=== PATIENT | female | born 1935 | race Caucasian/White ===

== ENCOUNTER 2020-06-26 20:56 | Observation (INO) | payer MEDICARE ==
[2020-06-26 22:34] LABS: Urine Blood 2+ (NEG); Urine Glucose NEGATIVE (NEG); Urine Protein 2+ (NEG)
[2020-06-26 22:53] LABS: Absolute Lymphocytes (CBC) 1.2 K/uL (0.7-4.9); Basophils % 0.5 % (0-1.3); Hematocrit 43.2 % (36.0-45.0); Lymphocytes % 21.4 % (15.3-44.8); MPV 8.8 fL (7.6-11.3); RBC Red Blood Cell Count 4.49 M/uL (3.86-4.86)
[2020-06-26 23:05] LABS: Protime INR 1.07
[2020-06-26 23:20] LABS: ALT/SGPT 11 U/L (12-78); AST/SGOT 18 U/L (15-37); Albumin 3.5 g/dL (3.4-5.0); Alkaline Phosphatase 74 U/L (45-117); BUN Blood Urea Nitrogen 13 mg/dL (7-18); Bicarbonate 29 mmol/L (21-32); Bilirubin Direct 0.3 mg/dL (0-0.2); Bilirubin Total 0.7 mg/dL (0.2-1.0); Glucose Level 96 mg/dL (74-106); Magnesium 1.9 mg/dL (1.8-2.4); NT PRO-BNP 1522 pg/mL (<450); Potassium 3.5 mmol/L (3.5-5.1); Protein, Total 9.1 g/dL (6.4-8.2); Sodium Level 136 mmol/L (136-145); Troponin (Emerg Dept Use Only) < 0.02 ng/mL (0.0-0.045)
--- NOTE | 2020-06-27 00:50 | ER ---
Nurse's Notes [facility] Name: Lauren Butterfield Age: 84 yrs Sex: Female : 1935 Arrival Date: 06/26/2020 Time: 21:01 Bed 24 Private MD: Diagnosis: Dizziness. General weakness. Unsteady dait Presentation: 06/26 21:01 Ebola Screen: No symptoms or risks identified at this time. ea 21:02 Chief complaint: EMS states: was tested positive for COVID last Jun 2. both of mg2 them had shingles shot last Friday and since then she has been feeling weak. she has mild dementia but not diagnosed. BGL-87 mg/dl. Coronavirus screen: Client denies travel out of the [place] in the last 14 days. Client presents with at least one sign or symptom that may indicate coronavirus-19. Standard/surgical mask placed on the client. Provider contacted for isolation considerations. Ebola Screen: No symptoms or risks identified at this time. No acute neurological deficit is noted. Initial Sepsis Screen: Does the patient meet any 2 criteria? No. Patient's initial sepsis screen is negative. Does the patient have a suspected source of infection? No. Patient's initial sepsis screen is negative. Risk Assessment: Do you want to hurt yourself or someone else? Patient reports no desire to harm self or others. Onset of symptoms was June 24, 2020. 21:02 Method Of Arrival: EMS: [facility] mg2 21:02 Acuity: JOHNSON 3 mg2 Historical: - Allergies: 21:03 No Known Allergies; ea - Immunization history:: Flu vaccine is not up to date. - Social history:: Smoking status: unknown. Screenin:02 Abuse screen: Denies threats or abuse. Nutritional screening: No deficits noted. ea Tuberculosis screening: No symptoms or risk factors identified. Fall Risk None identified. Assessment: 21:05 General: Appears in no apparent distress. comfortable, Behavior is calm, cooperative. mg2 Pain: Denies pain. Neuro: Level of Consciousness is awake, obeys commands, confused, Oriented to person, place. Cardiovascular: Capillary refill < 3 seconds Patient's skin is warm and dry. Respiratory: Airway is patent Respiratory effort is even, unlabored, Respiratory pattern is regular, symmetrical. GI: No signs and/or symptoms were reported involving the gastrointestinal system. : No signs and/or symptoms were reported regarding the genitourinary system. EENT: No signs and/or symptoms were reported regarding the EENT system. Derm: Skin is intact, is healthy with good turgor, Skin is pink, warm \T\ dry. normal. Musculoskeletal: Circulation, motion, and sensation intact. Capillary refill < 3 seconds. 22:21 Reassessment: road test was done by the patient. she said she is a bit dizzy while mg2 walking. 22:43 Reassessment: patient sent to CT scan via stretcher. son called- [phone] ( Gold Noyola). 23:00 Reassessment: Patient and/or family updated on plan of care and expected duration. Pain ea level reassessed. Patient is alert, oriented x 3, equal unlabored respirations, skin warm/dry/pink. Returned from CT. 06/27 00:05 Reassessment: called the lab to the in house covid test in the morning. mg2 00:18 Reassessment: Patient and/or family updated on plan of care and expected duration. Pain ea level reassessed. Pt resting with eyes closed. Respirations even and unlabored. Chest expansions even and symmetrical. No s/s of pain or discomfort noted at this time. 02:02 Reassessment: report given to ROXANNA [place]. [facility] [place]ital Signs: 06/26 21:01 BP 154 / 69; Pulse 89; Resp 18; Temp 98.5; Pulse Ox 97% on R/A; Weight 62.14 kg; Height ea 5 ft. 3 in. (160.02 cm); 23:15 BP 141 / 76; Pulse 83; Resp 16; Pulse Ox 95% on R/A; ea 23:44 BP 141 / 67; Pulse 80; Resp 18; mg2 06/27 00:38 BP 131 / 61; Pulse 74; Resp 18; Pulse Ox 93% on R/A; mg2 06/26 21:01 Body Mass Index 24.27 (62.14 kg, 160.02 cm) ea 00:38 patient sleeping now mg2 ED Course: 06/26 21:01 Patient arrived in ED. ea 21:02 Maverick Brown, RN is Primary Nurse. mg2 21:03 Patient has correct armband on for positive identification. Placed in gown. Bed in low ea position. Call light in reach. Side rails up X2. nuclear monitoring technician on. Pulse ox on. NIBP on. 21:03 Arm band placed on right wrist. Patient placed in an exam room, on a stretcher, on ea nuclear monitoring technician, on pulse oximetry. 21:05 Triage completed. mg2 21:05 No provider procedures requiring assistance completed. mg2 21:15 Woody Pompa MD is Attending Physician. pkl 22:39 XRAY Chest (1 view) In Process Unspecified. EDMS 22:40 Inserted saline lock: 20 gauge in right antecubital area, using aseptic technique. ds4 Blood collected. 22:57 CT Head Brain wo Cont In Process Unspecified. EDMS 23:10 COVID SWAB SENT TO LAB. mg2 11 00:49 Prince Galvin MD is Hospitalizing Provider. pkl 01:53 Patient admitted, IV remains in place. mg2 Administered Medications: No medications were administered Outcome: 00:50 Decision to Hospitalize by Provider. pkl 01:51 Admitted to ER Hold. Please see [facility] for further documentation. mg2 01:51 Condition: stable 01:51 Instructed on the need for admit, Demonstrated understanding of instructions. 19:05 Patient left the ED. aa5 Signatures: Dispatcher [employer] EDMS Woody Pompa MD MD pkMarjan Jimenez, RN RN aa5 Elia Pierre ds4 Heidi Espinal, RN Maverick Kevin ea, RN RN mg2 Corrections: (The following items were deleted from the chart) 06/26 21:07 21:02 Chief complaint: EMS states: was tested positive for COVID last Jun 2. mg2 both of them had shingles shot last Friday and since then she has been feeling weak. she has mild dementia but not diagnosed. mg2
--- NOTE | 2020-06-27 00:50 | EDPHYS ---
Physician Documentation [facility] Name: Lauren Butterfield Age: 84 yrs Sex: Female : 1935 Arrival Date: 06/26/2020 Time: 21:01 Bed 24 Private MD: ED Physician Woody Pompa HPI: 06/26 22:15 This 84 yrs old Female presents to ER via EMS with complaints of Weakness. pkl 22:13 . pkl 22:15 The patient presents with lightheadedness, feeling off balance. Onset: The pkl symptoms/episode began/occurred 3 day(s) ago. Patient 's was tested positive for Covid 19 on 06/19/20. 3 days ago, both she and her had shingles vaccinations. Since then she has been complaining of dizziness and feeling weak. Historical: - Allergies: 21:03 No Known Allergies; ea - Immunization history:: Flu vaccine is not up to date. - Social history:: Smoking status: unknown. ROS: 22:15 Eyes: Negative for injury, pain, redness, and discharge, ENT: Negative for injury, pkl pain, and discharge, Neck: Negative for injury, pain, and swelling, Cardiovascular: Negative for chest pain, palpitations, and edema, Respiratory: Negative for shortness of breath, cough, wheezing, and pleuritic chest pain, Abdomen/GI: Negative for abdominal pain, nausea, vomiting, diarrhea, and constipation, Back: Negative for injury and pain, : Negative for injury, bleeding, discharge, and swelling, MS/Extremity: Negative for injury and deformity, Skin: Negative for injury, rash, and discoloration. 22:15 Neuro: Positive for dizziness, gait disturbance, weakness. Exam: 22:15 Head/Face: Normocephalic, atraumatic. Eyes: Pupils equal round and reactive to light, pkl extra-ocular motions intact. Lids and lashes normal. Conjunctiva and sclera are non-icteric and not injected. Cornea within normal limits. Periorbital areas with no swelling, redness, or edema. ENT: Nares patent. No nasal discharge, no septal abnormalities noted. Tympanic membranes are normal and external auditory canals are clear. Oropharynx with no redness, swelling, or masses, exudates, or evidence of obstruction, uvula midline. Mucous membranes moist. Neck: Trachea midline, no thyromegaly or masses palpated, and no cervical lymphadenopathy. Supple, full range of motion without nuchal rigidity, or vertebral point tenderness. No Meningismus. Chest/axilla: Normal chest wall appearance and motion. Nontender with no deformity. No lesions are appreciated. Cardiovascular: Regular rate and rhythm with a normal S1 and S2. No gallops, murmurs, or rubs. Normal PMI, no JVD. No pulse deficits. Respiratory: Lungs have equal breath sounds bilaterally, clear to auscultation and percussion. No rales, rhonchi or wheezes noted. No increased work of breathing, no retractions or nasal flaring. Abdomen/GI: Soft, non-tender, with normal bowel sounds. No distension or tympany. No guarding or rebound. No evidence of tenderness throughout. Back: No spinal tenderness. No costovertebral tenderness. Full range of motion. Skin: Warm, dry with normal turgor. Normal color with no rashes, no lesions, and no evidence of cellulitis. MS/ Extremity: Pulses equal, no cyanosis. Neurovascular intact. Full, normal range of motion. 22:15 Neuro: Orientation: appropriate for stated age, Mentation: is normal, Cranial nerves: grossly normal, Cerebellar function: is grossly normal, Motor: is normal, Sensation: is normal, Gait: mild unsteady gait. Vital Signs: 21:01 BP 154 / 69; Pulse 89; Resp 18; Temp 98.5; Pulse Ox 97% on R/A; Weight 62.14 kg; Height ea 5 ft. 3 in. (160.02 cm); 23:15 BP 141 / 76; Pulse 83; Resp 16; Pulse Ox 95% on R/A; ea 23:44 BP 141 / 67; Pulse 80; Resp 18; mg2 06/27 00:38 BP 131 / 61; Pulse 74; Resp 18; Pulse Ox 93% on R/A; mg2 06/26 21:01 Body Mass Index 24.27 (62.14 kg, 160.02 cm) ea 00:38 patient sleeping now mg2 MDM: 06/26 21:15 Patient medically screened. pkl 06/27 00:47 Data reviewed: vital signs, nurses notes, lab test result(s), EKG, radiologic studies, pkl CT scan, plain films. ED course: Talked to Dr. Galvin for observation. 06/26 22:05 Order name: Basic Metabolic Panel; Complete Time: 23:35 pkl 06/26 22:05 Order name: CBC with Diff; Complete Time: 23:35 pkl 06/26 22:05 Order name: LFT's; Complete Time: 23:35 pkl 06/26 22:05 Order name: Magnesium; Complete Time: 23:35 pkl 06/26 22:05 Order name: NT PRO-BNP; Complete Time: 23:35 pkl 06/26 22:05 Order name: PT-INR; Complete Time: 23:35 pkl 06/26 22:05 Order name: Troponin (emerg Dept Use Only); Complete Time: 23:35 pkl 06/26 22:05 Order name: COVID-19 pk 06/26 22:27 Order name: Urine Dipstick--Ancillary (enter results); Complete Time: 23:35 ds4 06/27 07:10 Order name: SARS-COV-2 RT PCR EDMO 06/27 08:02 Order name: Lipid Profile EDMO 06/27 08:02 Order name: C-Reactive Protein EDMO 06/27 08:02 Order name: T4 Free EDMO 06/27 08:02 Order name: Thyroid Stimulating Hormone EDMO 06/26 22:05 Order name: XRAY Chest (1 view) pk 06/26 22:05 Order name: EKG; Complete Time: 22:07 pkl 06/26 22:05 Order name: Cardiac monitoring; Complete Time: 22:20 pk 06/26 22:05 Order name: EKG - Nurse/Tech; Complete Time: 22:43 pkl 06/26 22:05 Order name: IV Saline Lock; Complete Time: 22:43 pkl 06/26 22:05 Order name: Labs collected and sent; Complete Time: 22:43 pkl 06/26 22:05 Order name: O2 Per Protocol; Complete Time: 22:20 pkl 06/26 22:05 Order name: O2 Sat Monitoring; Complete Time: 22:20 pkl 06/26 22:05 Order name: CT Head Brain wo Cont pkl 06/26 22:20 Order name: Urine Dipstick-Ancillary (obtain specimen); Complete Time: 22:26 mg2 06/27 08:02 Order name: Ferritin EDMS 06/27 09:24 Order name: US EDMS 06/27 13:09 Order name: Vitamin B12 Level EDMS 06/27 13:28 Order name: MRI EDMS Administered Medications: No medications were administered Disposition: 06/27/20 00:50 Hospitalization ordered by Prince Kamar for Observation. Preliminary diagnosis is Dizziness. General weakness. Unsteady dait. - Bed requested for [facility] ER HOLD. - Status is Observation. aa5 - Condition is Stable. - Problem is new. - Symptoms are unchanged. Signatures: Dispatcher [employer] EDMS Woody Pompa MD MD pkl Marjan Carrera, RN RN aa5 Kristal Lerma RN RN tl1 Heidi Espinal RN RN ea Maverick Brown RN RN mg2 Corrections: (The following items were deleted from the chart) 01:32 00:50 Hospitalization Ordered by Prince Kamar WILDER for Observation. Preliminary tl1 diagnosis is Dizziness. General weakness. Unsteady dait. Bed requested for Telemetry/MedSurg (observation). Status is Observation. Condition is Stable. Problem is new. Symptoms are unchanged. pkl 19:05 01:32 06/27/2020 00:50 Hospitalization Ordered by Prince Kamar WILDER for Observation. aa5 Preliminary diagnosis is Dizziness. General weakness. Unsteady dait. Bed requested for [facility] ER HOLD. Status is Observation. Condition is Stable. Problem is new. Symptoms are unchanged. tl1
[2020-06-27 01:49] VITALS: BMI 24.3
--- NOTE | 2020-06-27 01:58 | P.HP ---
Certification for Inpatient Patient admitted to: Observation With expected LOS: <2 Midnights Practitioner: I am a practitioner with admitting privileges, knowledge of patient current condition, hospital course, and medical plan of care. Services: Services provided to patient in accordance with Admission requirements found in Title 42 Section 412.3 of the Code of Federal Regulations Patient History Date of Service: 06/27/20 Reason for admission: unsteady gait and altered mental status History of Present Illness: Patient is a 84-year-old female who presented the ER accompanied by . She has been having some unsteady gait and reduced mobility status. Although not formally diagnosed, suspects some cognitive impairment which has been ongoing for the past few years after a fall incident with possible head injury. Recently, patient has been confused and having difficulty moving around. She endorses lack of appetite, denies any diarrhea or vomiting. Denies any fever or chills. She also denies any dysuria. As her , who is her primary day care home mother, is being admitted for COVID 19 PNA, patient will not be safe to return home by herself. Allergies No Known Allergies Allergy (Verified 07/05/13 22:55) Home Medications: ALPRAZolam [Xanax*] 0.5 mg PO DAILY 07/05/13 Atenolol 100 mg PO DAILY 07/05/13 Zolpidem Tartrate [Ambien*] 10 mg PO BEDTIME PRN PRN 07/05/13 Amlodipine [Norvasc*] 10 mg PO DAILY #30 tab 07/16/13 Hydralazine [Apresoline*] 25 mg PO Q8HR #90 tab 07/16/13 Magnesium Oxide [Mag 0X*] 400 mg PO BID #60 tab 07/16/13 Pantoprazole [Protonix Tab*] 40 mg PO DAILYAC #30 tab 07/16/13 Sodium Chloride Tab [Sodium Chloride*] 1 gm PO Q8HR #90 tab 07/16/13 Valsartan [Diovan*] 160 mg PO BID #60 tab 07/16/13 atenoloL [Tenormin*] 100 mg PO DAILY #30 tab 07/16/13 - Past Medical/Surgical History Diabetic: No -: HTN -: Anxiety -: Insomnia - Social History Smoking Status: Unknown if ever smoked Alcohol use: No CD- Drugs: No Caffeine use: No Physical Examination - Physical Exam General: Cooperative, Cachectic, Demented, Mild distress, Other (very frail) HEENT: Atraumatic, Normocephalic, PERRLA, EOMI Neck: Supple Respiratory: Clear to auscultation bilaterally, Normal air movement Cardiovascular: No edema, Normal pulses, Regular rate/rhythm, Normal S1 S2 Gastrointestinal: Normal bowel sounds, Soft and benign, Non-distended, No tenderness Musculoskeletal: Other (3/5 strenght in all extremities) Neurological: Sensation intact, Normal affect, Dementia - Studies Laboratory Data (last 24 hrs) 06/26/20 22:40: PT 12.6 H, INR 1.07 06/26/20 22:40: WBC 5.8, Hgb 14.4, Hct 43.2, Plt Count 232 06/26/20 22:40: Sodium 136, Potassium 3.5, BUN 13, Creatinine 0.92, Glucose 96, Magnesium 1.9, Total Bilirubin 0.7, AST 18, ALT 11 L, Alkaline Phosphatase 74 Assessment and Plan - Problems (Diagnosis) (1) Generalized weakness Current Visit: Yes Status: Acute (2) Cognitive impairment Current Visit: Yes Status: Acute - Advance Directives Does patient have a Living Will: No Does patient have a Durable POA for Healthcare: No Physician Review Additional Text: Assessment Patient is a 84 year old female with possible dementia admitted with generalized weakness and gait instability. She has been wobbly at home and requires 's assistance for ADLs. CT Head w/o acute intracranial abnormalities Generalized weakness High risk for fall Frailty Cognitive impairement PLAN: Admit under telemetry MRI Brain pending PT/OT in the morning There is a COVID 19 test pending as patient's just recently tested positive
[2020-06-27] MEDS ORDERED: NA CHLORIDE 0.9% 250 ML IV ONE (06:40)
[2020-06-27 08:02] LABS: C-Reactive Protein 28.6 mg/L (<3.00); Ferritin 187.9 ng/mL (8-388); Thyroid Stimulating Hormone 1.08 uIU/mL (0.360-3.740)
[2020-06-27] MEDS ORDERED: ASPIRIN EC 81 MG TAB PO ONE (08:18)
[2020-06-27] MEDS ORDERED: FOLIC ACID 1 MG TABLET ONE ×2 (08:18→10:18)
[2020-06-27] MEDS ORDERED: NA CHLORIDE 0.9% 250 ML ONE (08:18)
--- NOTE | 2020-06-27 08:27 | RAD REPORT ---
EXAM DESCRIPTION: RAD - Chest Single View - 06/26/2020 10:39 pm CLINICAL HISTORY: feeling weak Chest pain. COMPARISON: Chest Pa And Lat (2 Views) dated 06/08/2020; Chest Pa And Lat (2 Views) dated 10/05/2018; Chest Pa And Lat (2 Views) dated 07/20/2018; CHEST SINGLE VIEW dated 07/06/2013 FINDINGS: Portable technique limits examination quality. Emphysematous changes are present throughout the lungs. The heart is moderately enlarged in size. No displaced fractures.Aortic atherosclerosis IMPRESSION: Prominent COPD.
--- NOTE | 2020-06-27 08:59 | P.DS ---
Admission Date: 06/27/20 Discharge Date: 06/27/20 Primary Care Provider: Dr. Sadler Disposition: DC HOME/HOME HEALTH CARE Discharge Condition: GOOD Reason for Admission: unsteady gait and altered mental status Consultations: Neurology-Dr. Pineda Procedures: CT Head: No acute intracranial abnormality. ECHO: EF 60% LEFT VENTRICULAR WALL MOTION: NORMAL DOPPLER/COLOR FLOW: MILD TO MODERATE AORTIC REGURGITATION. COMMENTS: NORMAL LEFT VENTRICULAR SIZE AND FUNCTION. MITRAL ANNULAR CALCIFICATION. MILD TO MODERATE AORTIC REGURGITATION. NO EFFUSION. Carotid Doppler: FINDINGS: Normal high resistance waveforms are noted in both external carotid arteries. The common carotid arteries and internal carotid arteries show normal low resistance waveforms. Moderate hard plaquing is present in both internal carotid arteries. Peak systolic and end diastolic velocity values and the ICA/CCA ratios are in the non-hemodynamically significant range. Antegrade flow seen in both vertebral arteries. IMPRESSION: Moderate hard plaquing in both internal carotid arteries. No evidence of a hemodynamically significant stenosis. 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 Mild to moderate signal within periventricular, deep and subcortical white matter likely ischemic changes secondary to small vessel disease. Diffusion-weighted/ADC mapping does not reveal evidence of acute infarction. The ventricles are normal caliber. An extra-axial fluid collection is not present Signal within the sphenoids probably chronic Fluid right mastoids IMPRESSION: No acute abnormality is displayed Fluid right mastoids may indicate acute mastoiditis and should be correlated clinically CXR: FINDINGS: Portable technique limits examination quality. Emphysematous changes are present throughout the lungs. The heart is moderately enlarged in size. No displaced fractures.Aortic atherosclerosis IMPRESSION: Prominent COPD. Medical Problem List: Fatigue, unsteadiness likely related to COVID 19 infection without hypoxia HTN Dementia likely vascular History CVA Brief History of Present Illness: 84-year-old female with history of dementia, hypertension. Patient presented to the ER due to increased fatigue. Some unsteadiness of her gait was noted. Patient reports lack of appetite. was present with her. was positive for COVID 19. Initial CT head unremarkable. Patient admitted for further evaluation. Hospital Course: Patient presented with increased fatigue, unsteadiness. Patient found to be positive for COVID 19. also tested positive recently. Chest x-ray shows no significant pneumonia. Patient did not have any hypoxia. CRP slightly elevated. CT head unremarkable. MRI brain unremarkable. Patient will be discharged home. Patient may continue with vitamin D 500 units daily, vitamin-C 500 mg daily, zinc 220 mg daily, thiamine 100 mg daily. The patient will also continue with prednisone 10 mg daily for 7 days. Patient will continue with social distancing, fase mask use and hand washing. Fall precautions to be continued. Will recommend home health and physical therapy at discharge. Recommend follow up with pulmonology within 1 week to follow up her care. Recommend follow up with her PCP in 1 week to further address. Patient with hypertension. This has remained stable. Patient will continue with her current medication. Patient with underlying dementia. Recommend follow up with neurology as an outpatient to further evaluate. Will recommend to continue multi vitamins as stated above including folic acid daily. Vital Signs/Physical Exam: Temp Pulse Resp BP Pulse Ox 99 F 80 18 126/59 L 93 06/27/20 04:00 06/27/20 04:00 06/27/20 04:00 06/27/20 04:00 06/27/20 04:00 General: Alert, In no apparent distress, Cooperative HEENT: Atraumatic Neck: Supple Respiratory: Clear to auscultation bilaterally, Normal air movement Cardiovascular: Normal pulses, Regular rate/rhythm Gastrointestinal: Normal bowel sounds, No tenderness, No masses, No rebound, No guarding Musculoskeletal: No erythema, No tenderness, No warmth Neurological: Normal speech, Normal strength at 5/5 x4 extr, Normal tone, Dementia (Mild) Laboratory Data at Discharge: WBC 5.8 K/uL (4.3-10.9) 06/26/20 22:40 Hgb 14.4 g/dL (12.0-15.0) 06/26/20 22:40 Hct 43.2 % (36.0-45.0) 06/26/20 22:40 Plt Count 232 K/uL (152-406) 06/26/20 22:40 PT 12.6 SECONDS (9.5-12.5) H 06/26/20 22:40 INR 1.07 06/26/20 22:40 Sodium 136 mmol/L (136-145) 06/26/20 22:40 Potassium 3.5 mmol/L (3.5-5.1) 06/26/20 22:40 BUN 13 mg/dL (7-18) 06/26/20 22:40 Creatinine 0.92 mg/dL (0.55-1.3) 06/26/20 22:40 Glucose 96 mg/dL (74-106) 06/26/20 22:40 Magnesium 1.9 mg/dL (1.8-2.4) 06/26/20 22:40 Total Bilirubin 0.7 mg/dL (0.2-1.0) 06/26/20 22:40 AST 18 U/L (15-37) 06/26/20 22:40 ALT 11 U/L (12-78) L 06/26/20 22:40 Alkaline Phosphatase 74 U/L (45-117) 06/26/20 22:40 Triglycerides 82 mg/dL (<150) 06/27/20 07:07 Cholesterol 131 mg/dL (<200) 06/27/20 07:07 HDL Cholesterol 57 mg/dL (40-60) 06/27/20 07:07 Cholesterol/HDL Ratio 2.30 06/27/20 07:07 Home Medications: Amlodipine [Norvasc*] 10 mg PO DAILY 06/27/20 Ascorbate Calcium [Vitamin C] 500 mg PO DAILY #30 tablet 06/27/20 Cholecalciferol (Vitamin D3) [Vitamin D3] 1,000 unit PO DAILY #30 capsule 06/27/20 Folic Acid 1 mg PO DAILY #30 tablet 06/27/20 Montelukast [Singulair*] 10 mg PO DAILY 06/27/20 Pantoprazole [Protonix Tab*] 40 mg PO DAILY 06/27/20 Thiamine HCl 100 mg PO DAILY #30 tablet 06/27/20 Zinc Sulfate [Zinc Sulfate*] 220 mg PO DAILY #30 cap 06/27/20 atenoloL [Atenolol] 100 mg PO DAILY 06/27/20 predniSONE [Deltasone*] 10 mg PO DAILY #7 tab 06/27/20 New Medications: predniSONE [Deltasone*] 10 mg PO DAILY #7 tab Folic Acid 1 mg PO DAILY #30 tablet Thiamine HCl 100 mg PO DAILY #30 tablet Ascorbate Calcium [Vitamin C] 500 mg PO DAILY #30 tablet Cholecalciferol (Vitamin D3) [Vitamin D3] 1,000 unit PO DAILY #30 capsule Zinc Sulfate [Zinc Sulfate*] 220 mg PO DAILY #30 cap Patient Discharge Instructions: 1. Recommend follow up with PCP in 1 week. 2. Patient presented with increased fatigue, unsteadiness. Patient found to be positive for COVID 19. also tested positive recently. Chest x-ray shows no significant pneumonia. Patient did not have any hypoxia. CRP slightly elevated. CT head unremarkable. MRI brain unremarkable. Patient will be discharged home. Patient may continue with vitamin D 500 units daily, vitamin-C 500 mg daily, zinc 220 mg daily, thiamine 100 mg daily. The patient will also continue with prednisone 10 mg daily for 7 days. Patient will continue with social distancing, fase mask use and hand washing. Fall precautions to be continued. Will recommend home health and physical therapy at discharge. Recommend follow up with pulmonology within 1 week to follow up her care. Recommend follow up with her PCP in 1 week to further address. 3. Patient with hypertension. This has remained stable. Patient will continue with her current medication. 4. Patient with underlying dementia. Recommend follow up with neurology as an outpatient to further evaluate. Will recommend to continue multi vitamins as stated above including folic acid daily. Diet: AHA Activity: Fall precautions Followup: Unknown,U [Primary Care Provider] - Time spent managing pt's care (in minutes): 55
[2020-06-27] MEDS ORDERED: ASPIRIN EC 81 MG TAB PO SCH (09:00)
[2020-06-27] MEDS ORDERED: FOLIC ACID 1 MG TABLET PO SCH (09:00)
--- NOTE | 2020-06-27 09:23 | RAD REPORT ---
EXAM DESCRIPTION: US - CP - 06/27/2020 8:57 am CLINICAL HISTORY: unsteadiness Headache, drowsiness COMPARISON: CT HEAD CSPINE MPR WO CONTRAST dated 07/05/2013 TECHNIQUE: Real-time sonographic evaluation of both carotid systems was performed. Doppler interroga tion was performed with waveform tracing bilaterally. FINDINGS: Normal high resistance waveforms are noted in both external carotid arteries. The common c arotid arteries and internal carotid arteries show normal low resistance waveforms. Moderate hard plaquing is present in both internal carotid arteries. Peak systolic and end diastolic velocity values and the ICA/CCA ratios are in the non-hemodynamically significant range. Antegrade flow seen in both vertebral arteries. IMPRESSION: Moderate hard plaquing in both internal carotid arteries. No evidence of a hemodynamically significant stenosis.
[2020-06-27] MEDS ORDERED: PNEUMOCOCCAL VACCINE 0.5 ML IMVAC ONE (10:00)
[2020-06-27] MEDS ORDERED: INFLUENZA VACCINE (for 3y+) 0.5 ML DOSE IMVAC ONE (10:00)
--- NOTE | 2020-06-27 10:22 | RAD REPORT ---
EXAM DESCRIPTION: CT HEAD WITHOUT IV CONTRAST CLINICAL HISTORY: Feeling weak COMPARISON: None. TECHNIQUE: This exam was performed according to our departmental dose-optimization program, which in cludes automated exposure control, adjustment of the mA and/or kV according to patient size and/or us e of iterative reconstruction technique. FINDINGS: There is no acute hemorrhage, mass effect or midline shift. Addison-white differentiation is preserved. There is no hydrocephalus. There is no significant volume loss for age. The calvarium is intact. Orbits and globes are unremarkable. The paranasal sinuses are clear. There i s fluid throughout the right mastoid air cells. IMPRESSION: Right mastoid effusion. No acute intracranial findings. Electronically signed by: Kyle Chery MD 06/26/2020 11:30 PM STRING TOP SEALER Due to temporary technical issues with the PACS/Fluency reporting system, reports are being signed by the in house radiologists without review as a courtesy to insure prompt reporting. The interpreting radiologist is fully responsible for the content of the report.
[2020-06-27] MEDS ORDERED: ACETAMINOPHEN 500 MG TAB PO ONE (10:55)
--- NOTE | 2020-06-27 11:56 | P.CNS ---
Date of Consult: 06/27/20 Primary Care Provider: Dr. Sadler Chief Complaint: Lam virus infection History of Present Illness: Patient is 84 years of age admitted with altered mental status unsteady gait response to be positive for lam virus infection was also admitted wit h a diagnosis of lam virus infection she denies any pulmonary complaints. Patient had been having some cognitive impairment with falls little confused Allergies No Known Allergies Allergy (Verified 06/27/20 04:50) Home Medications: Amlodipine [Norvasc] 10 mg PO DAILY 06/27/20 Ascorbate Calcium [Vitamin C] 500 mg PO DAILY #30 tablet 06/27/20 Cholecalciferol (Vitamin D3) [Vitamin D3] 1,000 unit PO DAILY #30 capsule 06/27/20 Folic Acid 1 mg PO DAILY #30 tablet 06/27/20 Montelukast [Singulair] 10 mg PO DAILY 06/27/20 Pantoprazole [Protonix Tab*] 40 mg PO DAILY 06/27/20 Thiamine HCl 100 mg PO DAILY #30 tablet 06/27/20 Zinc Sulfate [Zinc Sulfate*] 220 mg PO DAILY #30 cap 06/27/20 atenoloL [Atenolol] 100 mg PO DAILY 06/27/20 predniSONE [Deltasone*] 10 mg PO DAILY #7 tab 06/27/20 - Past Medical/Surgical History Diabetic: No -: HTN -: Anxiety -: Insomnia -: Virus infection - Social History Smoking Status: Unknown if ever smoked Alcohol use: No CD- Drugs: No Caffeine use: No Review of Systems 10-point ROS is otherwise unremarkable Physical Examination Temp Pulse Resp BP Pulse Ox 99 F 80 18 126/59 L 93 06/27/20 04:00 06/27/20 04:00 06/27/20 04:00 06/27/20 04:00 06/27/20 04:00 General: Alert, Oriented x3 HEENT: Atraumatic Neck: Supple Respiratory: Clear to auscultation bilaterally Cardiovascular: No edema, Regular rate/rhythm Laboratory Data (last 24 hrs) 06/26/20 22:40: PT 12.6 H, INR 1.07 06/26/20 22:40: WBC 5.8, Hgb 14.4, Hct 43.2, Plt Count 232 06/26/20 22:40: Sodium 136, Potassium 3.5, BUN 13, Creatinine 0.92, Glucose 96, Magnesium 1.9, Total Bilirubin 0.7, AST 18, ALT 11 L, Alkaline Phosphatase 74 - Problems (1) COVID-19 Current Visit: Yes Status: Acute Plan: Patient is 84 years of age admitted with altered mental status ataxia positive for lam virus infection no evidence of any pulmonary damage vital signs oxygenation satisfactory CT of the head was unremarkable there is no evidence of carotid artery stenosis patient can be discharged home no steroids indicated tsh and B12 level follow-up with me in 2 weeks
--- NOTE | 2020-06-27 12:04 | EKG ---
Test Date: 2020-06-26 Test Time: 22:33:28 Manager Location: MEASUREMENT RESULTS: Intervals: Rate: 93 [place]: 180 QRSD: 134 QT: 410 QTc: 509 [place]: P: 90 [place]: 180 QRS: 268 T: 92 INTERPRETIVE STATEMENTS: Suspect arm lead reversal, interpretation assumes no reversal Normal sinus rhythm Nonspecific intraventricular block Anterolateral infarct, age undetermined Abnormal ECG Compared to ECG 07/05/2013 15:22:23 Myocardial infarct finding now present Left-axis deviation no longer present Left bundle-branch block no longer present Electronically Signed On 06-27-20 12:03:06 MANAGER INSTRUMENTATION by Jadiel Pettit
--- NOTE | 2020-06-27 12:04 | EKG ---
Test Date: 2020-06-26 Test Time: 22:35:05 Piggyback Clerk: MEASUREMENT RESULTS: Intervals: Rate: 95 [place]: 186 QRSD: 130 QT: 404 QTc: 507 [place]: P: 70 [place]: 186 QRS: -63 T: 88 INTERPRETIVE STATEMENTS: Normal sinus rhythm Left axis deviation Left bundle branch block Abnormal ECG Compared to ECG 06/26/2020 22:33:28 Left-axis deviation now present Left bundle-branch block now present Myocardial infarct finding no longer present Electronically Signed On 06-27-20 12:03:05 [employer] UTILITY WORKER by Jadiel Pettit
[2020-06-27] MEDS ORDERED: LORazepam 2 MG/ML VIAL IV ONE (12:11)
--- NOTE | 2020-06-27 13:25 | ECHO ---
HEIGHT: 5 ft 3 in WEIGHT: 137 lb 0 oz DATE OF STUDY: 06/27/[address]: Satnam Carmona DO 2-DIMENSIONAL: YES M.MODE: YES DOPPLER: YES COLOR FLOW: YES TDS: PORTABLE: DEFINITY: BUBBLE STUDY: DIAGNOSIS: UNSTEADINESS CARDIAC HISTORY: CATHERIZATION: YES SURGERY: NO PROSTHETIC VALVE: NO PACEMAKER: NO MEASUREMENTS (cm) DIASTOLIC (NORMALS) SYSTOLIC (NORMALS) IVSd 1.1 (0.6-1.2) LA Diam 3.5 (1.9-4.0) LVEF 60% LVIDd 3.4 (3.5-5.7) LVIDs 2.4 (2.0-3.5) %FS 31% LVPWd 1.2 (0.6-1.2) Ao Diam 2.5 (2.0-3.7) 2 DIMENSIONAL ASSESSMENT: RIGHT ATRIUM: LEFT ATRIUM: RIGHT VENTRICLE: LEFT VENTRICLE: TRICUSPID VALVE: MITRAL VALVE: MITRAL ANNULAR CALCIFICATION PULMONIC VALVE: AORTIC VALVE: NORMAL PERICARDIAL EFFUSION: AORTIC ROOT: NORMAL LEFT VENTRICULAR WALL MOTION: NORMAL DOPPLER/COLOR FLOW: MILD TO MODERATE AORTIC REGURGITATION. COMMENTS: NORMAL LEFT VENTRICULAR SIZE AND FUNCTION. MITRAL ANNULAR CALCIFICATION. MILD TO MODERATE AORTIC REGURGITATION. NO EFFUSION. TECHNOLOGIST: LONNIE MACARIO
--- NOTE | 2020-06-27 13:27 | RAD REPORT ---
EXAM DESCRIPTION: MRI - Brain Wo Cont - 06/27/2020 12:50 pm CLINICAL HISTORY: unsteadiness, dementia COMPARISON: May 26, [address] TECHNIQUE: Axial, sagittal, and coronal magnetic images of the brain were obtained. Contrast was not requested FINDINGS: Increased signal within the right caudate likely secondary to old infarction. Mild to moderate signal within periventricular, deep and subcortical white matter likely ischemic adonis nges secondary to small vessel disease. Diffusion-weighted/ADC mapping does not reveal evidence of acute infarction. The ventricles are normal caliber. An extra-axial fluid collection is not present Signal within the sphenoids probably chronic Fluid right mastoids IMPRESSION: No acute abnormality is displayed Fluid right mastoids may indicate acute mastoiditis and should be correlated clinically
[2020-06-27] MEDS ORDERED: ENOXAPARIN 40 MG/0.4 ML SQ SCH (17:00)
[2020-06-27 17:55] VITALS: BP 147/75; TEMP 98.4; O2SAT 91
[2020-06-27] MEDS ORDERED: ATORVASTATIN 40 MG TAB PO SCH (21:00)
== END 2020-06-27 19:10 | disposition home or self-care (01) ==
LOC: ER 20:56 → ERHOLD 06-27 00:55
PROVIDERS: ADMIT Internal Medicine; ATTEND Family Medicine
DX: U07.1 COVID-19 (principal); F03.90 Unspecified dementia, unspecified severity, without behavioral disturbance, psychotic disturbance, mood disturbance, and anxiety; I10 Essential (primary) hypertension; F41.9 Anxiety disorder, unspecified; G47.00 Insomnia, unspecified; I35.1 Nonrheumatic aortic (valve) insufficiency; R94.31 Abnormal electrocardiogram [ECG] [EKG]; R64 Cachexia; Z68.24 Body mass index [BMI] 24.0-24.9, adult
CPT/HCPCS: 36415; 70450; 70551; 71045; 80048; 80061; 80076; 81003; 82607; 82728; 83735; 83880; 84439; 84443; 84484; 85025; 85610; 86140; 93005; 93306; 93880; 97112; 97116; 97161; 97530; 99285; G0378; J7050; U0003

== ENCOUNTER 2020-11-08 12:09 | Emergency (ER) | payer MEDICARE ==
[2020-11-08 14:13] LABS: Absolute Lymphocytes (CBC) 0.5 K/uL (0.7-4.9); Basophils % 0.2 % (0-1.3); Hematocrit 44.9 % (36.0-45.0); MPV 9.3 fL (7.6-11.3); RBC Red Blood Cell Count 4.64 M/uL (3.86-4.86)
[2020-11-08 14:30] LABS: ALT/SGPT 15 U/L (12-78); Albumin 3.5 g/dL (3.4-5.0); Alkaline Phosphatase 94 U/L (45-117); Amylase 37 U/L (25-115); BUN Blood Urea Nitrogen 14 mg/dL (7-18); Bicarbonate 27 mmol/L (21-32); Bilirubin Direct 0.2 mg/dL (0-0.2); Bilirubin Total 0.6 mg/dL (0.2-1.0); CKMB Creatine Kinase MB < 1.0 ng/mL (0.3-3.6); Creatine Phosphokinase 78 U/L (26-192); Glucose Level 111 mg/dL (74-106); Lipase 56 U/L (73-393); Protein, Total 9.3 g/dL (6.4-8.2); Sodium Level 134 mmol/L (136-145); Troponin (Emerg Dept Use Only) < 0.02 ng/mL (0.0-0.045)
[2020-11-08 14:31] LABS: AST/SGOT 19 U/L (15-37); Potassium 4.1 mmol/L (3.5-5.1)
--- NOTE | 2020-11-08 15:18 | RAD REPORT ---
EXAM DESCRIPTION: RAD - Chest Single View - 11/08/2020 2:22 pm CLINICAL HISTORY: Urinary symptoms, shortness of breath, recent second dose COVID vaccination COMPARISON: Portable June 26, 2020 TECHNIQUE: AP portable chest image was obtained 11/08/2020 2:22 pm . FINDINGS: Extensive baseline interstitial fibrotic pattern is not clearly different from comparison. Severity could mask early interstitial edema or infiltrate. Hilar regions have not changed. Heart si ze is upper normal to slightly enlarged but stable. Central vasculature has not changed. No measurable pleural effusion and no pneumothorax. Left base is obscured by dense breast implant ca psule calcifications and enlarged heart size. No acute aortic findings suspected. IMPRESSION: Extensive interstitial lung disease similar to June 2020. Severity could mask early edema or infiltrate.
[2020-11-08 17:02] LABS: Urine Bacteria <20 /HPF (<20); Urine RBC <5 /HPF (NONE SEEN)
--- NOTE | 2020-11-08 17:45 | EDPHYS ---
Physician Documentation [facility] Name: Lauren Butterfield Age: 84 yrs Sex: Female : 1935 Arrival Date: 11/08/2020 Time: 12:11 Bed 24 Private MD: ED Physician Graham Peter HPI: 11/09 17:25 This 84 yrs old Female presents to ER via EMS with complaints of Urinary kdr Incontinence. 17:25 This 84 yrs old Female presents to ER via EMS with complaints of Urinary kdr Incontinence. 17:25 Onset: The symptoms/episode began/occurred suddenly, today. Modifying factors: The kdr symptoms are alleviated by nothing, the symptoms are aggravated by nothing. Associated signs and symptoms: The patient has no apparent associated signs or symptoms. Severity of symptoms: At their worst the symptoms were mild, moderate, in the emergency department the symptoms are unchanged. The patient has not experienced similar symptoms in the past. The patient has not recently seen a physician. states that she normally urinates into a pad and that the urine is well contained. Today however, the urine is overflowing her containment methods. No other concerns and the patient does not have any general or focal c/o. Historical: - Allergies: 11/08 13:06 No Known Allergies; zb - Home Meds: 13:06 amlodipine 10 mg tab 1 tab once daily [Active]; pantoprazole 40 mg oral TbEC 1 tab once zb daily [Active]; folic acid 1 mg Oral tab 1 tab once daily [Active]; atenolol 100 mg Oral tab 1 tab once daily [Active]; - Immunization history:: Adult Immunizations up to date. - Social history:: Smoking status: unknown. ROS: 11/09 17:25 Constitutional: Negative for fever, chills, and weight loss, Eyes: Negative for injury, kdr pain, redness, and discharge, ENT: Negative for injury, pain, and discharge, Neck: Negative for injury, pain, and swelling, Cardiovascular: Negative for chest pain, palpitations, and edema, Respiratory: Negative for shortness of breath, cough, wheezing, and pleuritic chest pain, Abdomen/GI: Negative for abdominal pain, nausea, vomiting, diarrhea, and constipation, Back: Negative for injury and pain, MS/Extremity: Negative for injury and deformity, Skin: Negative for injury, rash, and discoloration, Neuro: Negative for headache, weakness, numbness, tingling, and seizure activity. : Positive for urinary symptoms, Incontinence . Exam: 17:25 Constitutional: This is a well developed, well nourished patient who is awake, alert, kdr and in no acute distress. Head/Face: Normocephalic, atraumatic. Eyes: Pupils equal round and reactive to light, extra-ocular motions intact. Lids and lashes normal. Conjunctiva and sclera are non-icteric and not injected. Cornea within normal limits. Periorbital areas with no swelling, redness, or edema. Neck: Trachea midline, no thyromegaly or masses palpated, and no cervical lymphadenopathy. Supple, full range of motion without nuchal rigidity, or vertebral point tenderness. No Meningismus. Chest/axilla: Normal chest wall appearance and motion. Nontender with no deformity. No lesions are appreciated. Cardiovascular: Regular rate and rhythm with a normal S1 and S2. No gallops, murmurs, or rubs. Normal PMI, no JVD. No pulse deficits. Respiratory: Lungs have equal breath sounds bilaterally, clear to auscultation and percussion. No rales, rhonchi or wheezes noted. No increased work of breathing, no retractions or nasal flaring. Abdomen/GI: Soft, non-tender, with normal bowel sounds. No distension or tympany. No guarding or rebound. No evidence of tenderness throughout. Back: No spinal tenderness. No costovertebral tenderness. Full range of motion. Skin: Warm, dry with normal turgor. Normal color with no rashes, no lesions, and no evidence of cellulitis. MS/ Extremity: Pulses equal, no cyanosis. Neurovascular intact. Full, normal range of motion. Psych: Awake, alert, with orientation to person, place and time. Behavior, mood, and affect are within normal limits. 17:25 Neuro: Orientation: to place, time. Vital Signs: 11/08 12:46 BP 151 / 84; Pulse 87; Resp 16; Temp 98.6; Pulse Ox 97% on R/A; Weight 68.04 kg; Height zb 5 ft. 3 in. (160.02 cm); Pain 0/10; 13:45 BP 144 / 90; Pulse 90; Resp 16; Pulse Ox 98% on R/A; zb 15:58 BP 136 / 62; Pulse 90; Resp 16; Pulse Ox 96% on R/A; zb 16:34 BP 128 / 71; Pulse 92; Resp 16; Pulse Ox 96% on R/A; zb 18:43 BP 122 / 62; Pulse 87; Resp 20; Pulse Ox 95% on R/A; zb 12:46 Body Mass Index 26.57 (68.04 kg, 160.02 cm) zb MDM: 17:44 Patient medically screened. [facility] 11/09 17:25 Data reviewed: vital signs, nurses notes, lab test result(s), radiologic studies. kdr Counseling: I had a detailed discussion with the patient and/or guardian regarding: the historical points, exam findings, and any diagnostic results supporting the discharge/admit diagnosis, lab results, radiology results, the need for outpatient follow up. 11/08 12:27 Order name: Urine Culture [facility] 11/08 12:38 Order name: Amylase, Serum [facility] 11/08 12:38 Order name: Basic Metabolic Panel [facility] 11/08 12:38 Order name: Blood Culture Adult (2) [facility] 11/08 12:38 Order name: CBC with Diff; Complete Time: 17:08 [facility] 11/08 12:38 Order name: Ckmb [facility] 11/08 12:38 Order name: CPK [facility] 11/08 12:38 Order name: Lactate; Complete Time: 17:08 [facility] 11/08 12:38 Order name: LFT's; Complete Time: 17:08 [facility] 11/08 12:38 Order name: Lipase; Complete Time: 17: [facility] 11/08 12:38 Order name: Procalcitonin; Complete Time: 17:08 [facility] 11/08 12:38 Order name: Troponin (emerg Dept Use Only); Complete Time: 17:08 [facility] 11/08 12:27 Order name: Urine Dipstick-Ancillary (obtain specimen); Complete Time: 16:38 [facility] 11/08 12:38 Order name: Urine Microscopic Only; Complete Time: 17:08 [facility] 11/08 12:38 Order name: Chest Single View XRAY; Complete Time: 17:08 [facility] 11/08 12:38 Order name: Accucheck; Complete Time: 15:15 [facility] 11/08 12:38 Order name: Cardiac monitoring; Complete Time: 15:15 kdr 11/08 12:38 Order name: EKG - Nurse/Tech; Complete Time: 15:15 kdr 11/08 12:38 Order name: Labs collected and sent; Complete Time: 15:15 kdr 11/08 12:38 Order name: O2 Per Protocol; Complete Time: 15:15 kdr 11/08 12:39 Order name: Amylase; Complete Time: 17:08 [facility] 11/08 12:39 Order name: Basic Metabolic Panel; Complete Time: 17:08 [facility] 11/08 12:39 Order name: CKMB Creatine Kinase MB; Complete Time: 17:08 [facility] 11/08 12:39 Order name: Creatine Phosphokinase; Complete Time: 17:08 [facility] 11/08 17:43 Order name: Urine Dipstick--Ancillary (enter results) bd 11/08 12:38 Order name: O2 Sat Monitoring; Complete Time: 15:15 kdr 11/08 12:39 Order name: Smith; Complete Time: 14:11 kdr 11/08 17:12 Order name: EKG - Nurse/Tech; Complete Time: 19:22 kdr Administered Medications: 11/08 12:41 Not Given (Physician Discretion): NS 0.9% (30 ml/kg) 30 ml/kg IV at bolus once; Sepsis Protocol 17:54 Drug: Lovenox 1 mg/kg Route: Sub-Q; Site: right lower abdomen; zb 18:00 Follow up: Response: Medication administered at discharge. zb Disposition: 11/08/20 17:44 Discharged to Home. Impression: Unspecified urinary incontinence. - Condition is Stable. - Discharge Instructions: Urinary Incontinence. - Medication Reconciliation Form, Thank You Letter form. - Follow up: Private Physician; When: 2 - 3 days; Reason: If symptoms return, Further diagnostic work-up, Recheck today's complaints, Continuance of care, Re-evaluation by your physician. - Problem is new. - Symptoms have improved. Signatures: Dispatcher [employer] [facility] Graham Peter MD MD kdr Smirch, Shelby, RN RN Rita Felipe RN RN zb Corrections: (The following items were deleted from the chart) 12:12 12:12 Allergies: No Known Allergies; [facility] 18:44 17:44 11/08/2020 17:44 Discharged to Home. Impression: Unspecified urinary zb incontinence. Condition is Stable. Forms are Medication Reconciliation Form, Thank You Letter, Antibiotic Education, Prescription Opioid Use. Follow up: Private Physician; When: 2 - 3 days; Reason: If symptoms return, Further diagnostic work-up, Recheck today's complaints, Continuance of care, Re-evaluation by your physician. Problem is new. Symptoms have improved. kdr
--- NOTE | 2020-11-08 17:45 | ER ---
Nurse's Notes [facility] Name: Lauren Butterfield Age: 84 yrs Sex: Female : 1935 Arrival Date: 11/08/2020 Time: 12:11 Bed 24 [facility] MD: Diagnosis: Unspecified urinary incontinence Presentation: 11/08 12:11 Chief complaint: EMS states: reports that patient began having difficulty ss walking and urinary incontinence since last night/ early this morning. Pt has no complaints. Received 2nd covid vaccination yesterday. Coronavirus screen: Client denies travel out of the [place] in the last 14 days. Ebola Screen: Patient denies exposure to infectious person. Patient denies travel to an Ebola-affected area in the 21 days before illness onset. Initial Sepsis Screen: Does the patient meet any 2 criteria? No. Patient's initial sepsis screen is negative. Does the patient have a suspected source of infection? No. Patient's initial sepsis screen is negative. Risk Assessment: Do you want to hurt yourself or someone else? Patient reports no desire to harm self or others. Onset of symptoms was November 07, 2020. 12:11 Method Of Arrival: EMS: [facility] ss 12:11 Acuity: JOHNSON 3 ss Historical: - Allergies: 13:06 No Known Allergies; zb - Home Meds: 13:06 amlodipine 10 mg tab 1 tab once daily [Active]; pantoprazole 40 mg oral TbEC 1 tab once zb daily [Active]; folic acid 1 mg Oral tab 1 tab once daily [Active]; atenolol 100 mg Oral tab 1 tab once daily [Active]; - Immunization history:: Adult Immunizations up to date. - Social history:: Smoking status: unknown. Screenin:44 Abuse screen: Denies threats or abuse. Denies injuries from another. Nutritional zb screening: No deficits noted. Tuberculosis screening: No symptoms or risk factors identified. Fall Risk Fall in past 12 months (25 points). No secondary diagnosis (0 pts). IV access (20 points). Ambulatory Aid- Crutches/Cane/Walker (15 pts). Gait- Normal/Bed Rest/Wheelchair (0 pts) Mental Status- Oriented to own ability (0 pts). Total Ulrich Fall Scale indicates High Risk Score (45 or more points). Fall prevention measures have been instituted. Side Rails Up X 2 Placed Close to Nursing Station Frequent Obs/Assessments Occuring Family Present and informed to notify staff if the need to leave the bedside As available patient and family educated on Fall Prevention Program and Strategies. Assessment: 12:42 General: Appears in no apparent distress. comfortable, Behavior is calm, cooperative, zb appropriate for age, Denies fever, feeling ill, fatigue, chills. Pain: Complains of pain in low back pain. Neuro: Level of Consciousness is awake, alert, obeys commands, Oriented to person, place, time, situation. Neuro: Heel Turner are equal bilaterally Moves all extremities. Facial symmetry appears normal, Pupils are PERRLA, Intact. Cardiovascular: Patient's skin is warm and dry. Respiratory: Airway is patent Respiratory effort is even, unlabored, Respiratory pattern is regular, symmetrical. GI: Abdomen is distended. : Reports incontinence, urinary frequency. Derm: Skin is fragile, is thin, Skin is dry, Skin is normal, Skin temperature is warm. Musculoskeletal: Range of motion: intact in all extremities. 13:42 Reassessment: Patient appears in no apparent distress at this time. Patient and/or zb family updated on plan of care and expected duration. Pain level reassessed. Patient is alert, oriented x 3, equal unlabored respirations, skin warm/dry/pink. remains at bedside. no changes at this time. patient repositioned for comfort. 14:42 Reassessment: Patient appears in no apparent distress at this time. Patient and/or zb family updated on plan of care and expected duration. Pain level reassessed. Patient is alert, oriented x 3, equal unlabored respirations, skin warm/dry/pink. patient has been stuck. patient refusing to be stuck again. lab sent in to collect blood. 15:53 Reassessment: Patient appears in no apparent distress at this time. Patient and/or zb family updated on plan of care and expected duration. Pain level reassessed. Patient is alert, oriented x 3, equal unlabored respirations, skin warm/dry/pink. spoke to patient and wanting to know when they can leave or what the plain. Is patient doesn't want to be stuck anymore. notified ECP. 16:34 Reassessment: Patient appears in no apparent distress at this time. Patient and/or zb family updated on plan of care and expected duration. Pain level reassessed. Patient is alert, oriented x 3, equal unlabored respirations, skin warm/dry/pink. patient and family waiting on results and to discuss POC with family. warm blanket provided. 18:00 Reassessment: pt hard stick discussed with provider the inability to get PT and second zb culture done patient stated that he was okay with not having the culture or lab work. 18:44 Reassessment: d/c instructions given to and . russo removed. no iv at this zb time. patient wheeled out to car. no issues at this time. Vital Signs: 12:46 BP 151 / 84; Pulse 87; Resp 16; Temp 98.6; Pulse Ox 97% on R/A; Weight 68.04 kg; Height zb 5 ft. 3 in. (160.02 cm); Pain 0/10; 13:45 BP 144 / 90; Pulse 90; Resp 16; Pulse Ox 98% on R/A; zb 15:58 BP 136 / 62; Pulse 90; Resp 16; Pulse Ox 96% on R/A; zb 16:34 BP 128 / 71; Pulse 92; Resp 16; Pulse Ox 96% on R/A; zb 18:43 BP 122 / 62; Pulse 87; Resp 20; Pulse Ox 95% on R/A; zb 12:46 Body Mass Index 26.57 (68.04 kg, 160.02 cm) zb ED Course: 12:11 Patient arrived in ED. ss 12:12 Triage completed. ss 12:12 Arm band placed on right wrist. ss 12:25 Graham Peter MD is Attending Physician. kdr 12:42 Rita Felipe RN is Primary Nurse. zb 12:45 Patient has correct armband on for positive identification. Bed in low position. Call zb light in reach. Pulse ox on. NIBP on. Door closed. Noise minimized. 13:30 Missed attempt(s): 20 gauge in right antecubital area. Bleeding controlled, band aid ss applied, catheter tip intact. 13:37 Missed attempt(s): 22 gauge in right wrist. Bleeding controlled, band aid applied, ss catheter tip intact. 14:22 Chest Single View XRAY In Process Unspecified. EDMS 18:43 No provider procedures requiring assistance completed. Patient did not have IV access zb during this emergency room visit. Administered Medications: 12:41 Not Given (Physician Discretion): NS 0.9% (30 ml/kg) 30 ml/kg IV at bolus once; Sepsis ss Protocol 17:54 Drug: Lovenox 1 mg/kg Route: Sub-Q; Site: right lower abdomen; zb 18:00 Follow up: Response: Medication administered at discharge. zb Outcome: 17:44 Discharge ordered by . kdr 18:43 Discharged to home via wheelchair. zb 18:43 Condition: stable 18:43 Discharge instructions given to patient, family, Instructed on discharge instructions, follow up and referral plans. Demonstrated understanding of instructions, follow-up care. 18:44 Patient left the ED. zb Signatures: Dispatcher [employer] EDDC Graham Peter MD MD kdr Smirch, Shelby, RN RN ss Rita Felipe RN RN zb Corrections: (The following items were deleted from the chart) 12:12 12:12 Allergies: No Known Allergies; ss ss 13:37 13:37 Missed attempt(s): 22 gauge in right wrist. ss ss
[2020-11-08] MEDS ORDERED: ENOXAPARIN 80 MG/0.8 ML SQ ONE (18:09)
[2020-11-08 19:22] VITALS: TEMP 98.6
[2020-11-08 19:27] VITALS: BP 122/62; O2SAT 95
[2020-11-08 20:24] LABS: Urine Blood 2+ (NEG); Urine Glucose NEGATIVE (NEG); Urine Protein 1+ (NEG); Urine pH 7.5 (5.0-7.0)
== END 2020-11-08 18:44 | disposition home or self-care (01) ==
LOC: ER 12:09
DX: R32 Unspecified urinary incontinence (principal)
CPT/HCPCS: 36415; 71045; 80048; 80076; 81003; 81015; 82150; 82550; 82553; 83605; 83690; 84145; 84484; 85025; 87040; 87086; 87088; 93005; 96372; 99284

== ENCOUNTER 2021-06-01 06:25 | Emergency (ER) | payer MEDICARE ==
[2021-06-01] MEDS ORDERED: TRAMADOL HCL 50 MG TAB ONE (07:08)
--- NOTE | 2021-06-01 07:36 | RAD REPORT ---
EXAM DESCRIPTION: CT - Head Brain Wo Cont - 06/01/2021 7:08 am CLINICAL HISTORY: Fall with headache COMPARISON: 2019 TECHNIQUE: Computed axial tomography of the head was obtained. IV contrast was not requested. All CT scans are performed using dose optimization technique as appropriate and may include automated exposure control or mA/KV adjustment according to patient size. FINDINGS: An intracranial bleed is not seen . The ventricles are normal in caliber. No extra-axial fluid collection is noted. Mild low-density areas within periventricular, deep and subcortical white matter likely represent isc hemic changes secondary to small vessel disease. 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 The Chronic opacification right mastoids may indicate mastoiditis. No fluid within the sinuses seen. [employer] Consultant aleah sphenoid sinusitis IMPRESSION: No acute intracranial abnormality is seen. If patient's symptoms persist MRI of the bra in would be recommended.
--- NOTE | 2021-06-01 07:41 | RAD REPORT ---
EXAM DESCRIPTION: CTSpine Lumbar Wo Con06/01/2021 7:08 am CLINICAL HISTORY: Back injury with back pain status post fall COMPARISON: None TECHNIQUE: Computed axial tomography lumbar spine was obtained with coronal and sagittal reconstruct ion. All CT scans are performed using dose optimization technique as appropriate and may include automated exposure control or mA/KV adjustment according to patient size. FINDINGS: Compression fracture involves the superior endplate of the L1 vertebral body. Compression of the vertebral body is estimated 15%. No retropulsion of fracture fragment into the spinal canal. No dislocation Moderate spondylosis involves lumbar spine. Central and foraminal stenosis present 7.4 centimeter right renal cyst incompletely evaluated on this exam IMPRESSION: Mild compression fracture L1 vertebral body
--- NOTE | 2021-06-01 07:45 | RAD REPORT ---
EXAM DESCRIPTION: CT - Pelvis Wo Cont - 06/01/2021 7:08 am CLINICAL HISTORY: Pelvic pain status post fall COMPARISON: None. TECHNIQUE: Computed axial tomography of the pelvis was obtained. Coronal and sagittal reconstruction performed All CT scans are performed using dose optimization technique as appropriate and may include automated exposure control or mA/KV adjustment according to patient size. FINDINGS: No fracture or dislocation is visualized. The bones are osteoporotic. No significant hip joint effusion. Muscles are normal size and density. IMPRESSION: No fracture seen If patient continues have symptoms to suggest an occult fracture MRI would be recommended
--- NOTE | 2021-06-01 07:53 | EDPHYS ---
Physician Documentation [facility] Name: Lauren Butterfield Age: 85 yrs Sex: Female : 1935 Arrival Date: 06/01/2021 Time: 06:30 Bed 20 Private MD: ED Physician Mahendra Estrada HPI: 06/01 09:24 This 85 yrs old Female presents to ER via EMS with complaints of Fall Injury. kb 09:24 Details of fall: The patient fell from an upright position, while walking. Onset: The kb symptoms/episode began/occurred 4 day(s) ago. Associated injuries: The patient sustained lumbar spine, painful injury. Severity of symptoms: At their worst the symptoms were moderate, in the emergency department the symptoms are unchanged. The patient has not experienced similar symptoms in the past. The patient has not recently seen a physician. Pt states she was trying to get through a doorway and fell backwards onto buttock then hit head on ground. States she has been walking with her walker, but it is painful. Reports pain to lumbar area. Historical: - Allergies: 06:47 No Known Allergies; wg - Home Meds: 06:47 "Cannot remember" [Active]; wg - PMHx: 06:47 Hypertensive disorder; wg - Immunization history:: Adult Immunizations. - Social history:: Smoking status: Patient/guardian denies using tobacco, the patient reports quitting approximately 25 years ago. ROS: 09:18 Constitutional: Negative for fever, chills, and weight loss. kb 09:18 Back: Positive for pain at rest, pain with movement, of the lumbar area. 09:18 All other systems are negative. Exam: 09:23 Constitutional: This is a well developed, well nourished patient who is awake, alert, kb and in no acute distress. Head/Face: Normocephalic, atraumatic. ENT: Moist Mucous membranes Cardiovascular: Regular rate and rhythm with a normal S1 and S2. No gallops, murmurs, or rubs. No pulse deficits. Respiratory: Respirations even and unlabored. No increased work of breathing, no retractions or nasal flaring. Abdomen/GI: Soft, non-tender. No distention Skin: Warm, dry with normal turgor. Normal color. MS/ Extremity: Pulses equal, no cyanosis. Neurovascular intact. Full, normal range of motion. Neuro: Awake and alert, GCS 15, oriented to person, place, time, and situation. Moves all extremities. Normal gait. Psych: Awake, alert, with orientation to person, place and time. Behavior, mood, and affect are within normal limits. 09:23 Back: pain, that is moderate, of the lumbar area, ROM is painful, normal spinal alignment noted, vertebral tenderness, is appreciated at lumbar spine. Vital Signs: 06:44 BP 140 / 60; Pulse 78; Resp 17; Temp 98.4; Pulse Ox 99% on R/A; Weight 63.5 kg; Height wg 5 ft. 2 in. (157.48 cm); Pain 8/10; 08:00 BP 154 / 79; Pulse 88; Resp 16; Pulse Ox 98% ; Pain 9/10; tc5 06:44 Body Mass Index 25.61 (63.50 kg, 157.48 cm) wg [place] Coma Score: 06:53 Eye Response: spontaneous(4). Verbal Response: oriented(5). Motor Response: obeys commands(6). Total: 15. Trauma Score (Adult): 06:53 Eye Response: spontaneous(1); Verbal Response: oriented(1); Motor Response: obeys commands(2); Systolic BP: > 89 mm Hg(4); Respiratory Rate: 10 to 29 per min(4); [place] Score: 15; Trauma Score: 12 MDM: 06:33 Patient medically screened. kb 08:54 Data reviewed: vital signs, nurses notes. Data interpreted: Pulse oximetry: on room air kb is 98 %. Interpretation: normal. Counseling: I had a detailed discussion with the patient and/or guardian regarding: the historical points, exam findings, and any diagnostic results supporting the discharge/admit diagnosis, radiology results, the need for outpatient follow up, a family practitioner, to return to the emergency department if symptoms worsen or persist or if there are any questions or concerns that arise at home. 06/01 06:39 Order name: CT Head Brain wo Cont; Complete Time: 07:48 kb 06/01 06:39 Order name: CT Lumbar Spine Wo Con; Complete Time: 07:48 kb 06/01 06:39 Order name: CT Pelvis wo Cont; Complete Time: 07:48 kb Administered Medications: 06:45 Drug: traMADol 25 mg Route: PO; sj1 08:00 Follow up: BP 154 / 79; Pulse 88 bpm; Resp 16 bpm; Pulse Ox 98% ; Pain 9/10 Adult; tc5 Response: No adverse reaction Disposition Summary: 06/01/21 07:52 Discharge Ordered Location: Home Condition: Stable kb Diagnosis - Mild compression fracture L1 kb Followup: kb - With: Emergency Department - When: As needed - Reason: Worsening of condition Followup: kb - With: Private Physician - When: 2 - 3 days - Reason: Recheck today's complaints, Continuance of care, Re-evaluation by your physician Discharge Instructions: - Discharge Summary Sheet kb - Spinal Compression Fracture kb Forms: - Medication Reconciliation Form kb - Thank You Letter kb - Antibiotic Education kb - Prescription Opioid Use kb Prescriptions: - Tramadol 50 mg Oral Tablet - take 1 tablet by ORAL route every 8 hours as needed; 12 tablet; Refills: 0, kb Product Selection Permitted Addendum: 06/06/2021 21:51 Co-signature as Attending Physician, Mahendra Estrada MD I agree with the assessment and r n plan of care. Attestation: The patient's history, exam findings, diagnostics, and a summary of any interventions or procedures was reviewed in detail with Mel NEVAREZ. Signatures: Dispatcher [employer] Mel Coronel, GERI ODOMP-CkMahendra George MD MD rn Gamba, Liam, Shaunna Rosas RN RN sj1 Raiza Garrido RN tc5
--- NOTE | 2021-06-01 07:53 | ER ---
Nurse's Notes [facility] Name: Lauren Butterfield Age: 85 yrs Sex: Female : 1935 Arrival Date: 06/01/2021 Time: 06:30 Bed 20 Private MD: Diagnosis: Mild compression fracture L1 Presentation: 06/01 06:37 Chief complaint: Patient states: Pt states she was coming out of her door at home and wg fell backward on Friday. Pt states she has been in bed since then. Pt c/o low back pain, more on the right side. Pt and unsure if pt had LOC and could not recall what meds she is taking. Pt insistent she would not allow any blood draws. Care prior to arrival: None. Mechanism of Injury: Fall from standing position. 06:37 Acuity: JOHNSON 3 06:37 Method Of Arrival: EMS: [facility] 06:44 Coronavirus screen: Vaccine status: Patient reports receiving the 2nd dose of the covid wg vaccine. Date October 2020 Client denies travel out of the [place] in the last 14 days. At this time, the client does not indicate any symptoms associated with coronavirus-19. Ebola Screen: Patient negative for fever greater than or equal to 101.5 degrees Fahrenheit, and additional compatible Ebola Virus Disease symptoms Patient denies exposure to infectious person. Patient denies travel to an Ebola-affected area in the 21 days before illness onset. No symptoms or risks identified at this time. Initial Sepsis Screen: Does the patient meet any 2 criteria? No. Patient's initial sepsis screen is negative. Does the patient have a suspected source of infection? No. Patient's initial sepsis screen is negative. Risk Assessment: Do you want to hurt yourself or someone else? Patient reports no desire to harm self or others. Onset of symptoms was May 28, 2021. Triage Assessment: 06:48 General: Appears in no apparent distress. well groomed, Behavior is calm, cooperative, wg appropriate for age. Pain: Complains of pain in Low Back. Cardiovascular: No deficits noted. Respiratory: No deficits noted. Musculoskeletal: Reports pain in Low back Pain is 8 out of 10 on a pain scale. Trauma Activation: Not Applicable Physician: ED Physician; Name: ; Notified At: ; Arrived At: Physician: General Surgeon; Name: ; Notified At: ; Arrived At: Physician: Radiology; Name: ; Notified At: ; Arrived At: Physician: Respiratory; Name: ; Notified At: ; Arrived At: Physician: Lab; Name: ; Notified At: ; Arrived At: Historical: - Allergies: 06:47 No Known Allergies; wg - Home Meds: 06:47 "Cannot remember" [Active]; wg - PMHx: 06:47 Hypertensive disorder; wg - Immunization history:: Adult Immunizations. - Social history:: Smoking status: Patient/guardian denies using tobacco, the patient reports quitting approximately 25 years ago. Screenin:53 Abuse screen: Denies threats or abuse. Denies injuries from another. Nutritional wg screening: No deficits noted. Tuberculosis screening: No symptoms or risk factors identified. Fall Risk Primary Survey: 08:01 A: The patient needs verbal stimulation to respond. Airway: patent. Breathing/Chest: tc5 Respiratory pattern: regular. Disability Alert. 08:02 Reassessment Breathing/Chest. tc5 Vital Signs: 06:44 BP 140 / 60; Pulse 78; Resp 17; Temp 98.4; Pulse Ox 99% on R/A; Weight 63.5 kg; Height wg 5 ft. 2 in. (157.48 cm); Pain 8/10; 08:00 BP 154 / 79; Pulse 88; Resp 16; Pulse Ox 98% ; Pain 9/10; tc5 06:44 Body Mass Index 25.61 (63.50 kg, 157.48 cm) [place] Coma Score: 06:53 Eye Response: spontaneous(4). Verbal Response: oriented(5). Motor Response: obeys commands(6). Total: 15. Trauma Score (Adult): 06:53 Eye Response: spontaneous(1); Verbal Response: oriented(1); Motor Response: obeys commands(2); Systolic BP: > 89 mm Hg(4); Respiratory Rate: 10 to 29 per min(4); [place] Score: 15; Trauma Score: 12 ED Course: 06:30 Patient arrived in ED. wm 06:33 Mel Toro FNP-C is [facility]. kb 06:33 Mahendra Estrada MD is Attending Physician. kb 06:44 Triage completed. wg 06:49 Arm band placed on right wrist. wg 06:53 Patient has correct armband on for positive identification. Bed in low position. Call wg light in reach. Side rails up X2. Adult w/ patient. Pulse ox on. NIBP on. 06:53 Patient maintains SpO2 saturation greater than 95% on room air. wg 06:55 Aguilar Bliss, RN is Primary Nurse. wg 07:08 CT Head Brain wo Cont In Process Unspecified. EDMS 07:08 CT Lumbar Spine Wo Con In Process Unspecified. EDMS 07:08 CT Pelvis wo Cont In Process Unspecified. EDMS 08:02 No provider procedures requiring assistance completed. tc5 Administered Medications: 06:45 Drug: traMADol 25 mg Route: PO; sj1 08:00 Follow up: BP 154 / 79; Pulse 88 bpm; Resp 16 bpm; Pulse Ox 98% ; Pain 9/10 Adult; tc5 Response: No adverse reaction Outcome: 07:52 Discharge ordered by . kb 08:02 Discharged to home via wheelchair. tc5 08:02 Condition: stable 08:02 Discharge instructions given to patient. 08:15 Patient left the ED. tc5 Signatures: Dispatcher [employer] EDMel Franks, OPERATOR [employer]-C OPERATOR COMMAND [employer]PPORT SYSTEM[employer]-CkLuana Ryan Liam, RN Shaunna Burton, RN RN sj1 Raiza Garrido, RN RN tc5 Corrections: (The following items were deleted from the chart) 06:52 06:37 Chief complaint: Patient states: Pt states she was coming out of her door at home wg and fell backward on Friday. Pt states she has been in bed since then. Pt c/o low back pain, more on the right side. wg
[2021-06-01 08:31] VITALS: TEMP 98.4
[2021-06-01 08:33] VITALS: BP 154/79; O2SAT 98
== END 2021-06-01 08:15 | disposition home or self-care (01) ==
LOC: ER 06:25
DX: S32.019A Unspecified fracture of first lumbar vertebra, initial encounter for closed fracture (principal); W18.30XA Fall on same level, unspecified, initial encounter; Y93.01 Activity, walking, marching and hiking; I10 Essential (primary) hypertension
CPT/HCPCS: 70450; 72131; 72192; 99284

== ENCOUNTER 2021-06-21 12:44 | Emergency (ER) | payer MEDICARE, OTHER ==
[2021-06-21 14:14] LABS: Protime INR 0.98
--- NOTE | 2021-06-21 14:18 | RAD REPORT ---
EXAM DESCRIPTION: RAD - Chest Single View - 06/21/2021 1:58 pm CLINICAL HISTORY: SOB;Cough COMPARISON: Chest Single View dated 11/08/2020; Chest Single View dated 06/26/2020; Chest Pa And Lat ( 2 Views) dated 06/08/2020; Chest Pa And Lat (2 Views) dated 10/05/2018 FINDINGS: Lines: None. Lungs: No evidence of edema or pneumonia. Pleural: No significant pleural effusions or pneumothorax. Cardiac: Mild cardiomegaly Bones: No acute fractures. Other: Atherosclerosis. IMPRESSION: No acute cardiopulmonary disease.
[2021-06-21 14:24] LABS: Absolute Lymphocytes (CBC) 0.7 K/uL (0.7-4.9); Basophils % 0.2 % (0-1.3); Hematocrit 52.4 % (36.0-45.0); MPV 8.9 fL (7.6-11.3); RBC Red Blood Cell Count 5.32 M/uL (3.86-4.86)
[2021-06-21 14:32] LABS: ALT/SGPT 13 U/L (12-78); AST/SGOT 19 U/L (15-37); Albumin 2.2 g/dL (3.4-5.0); Alkaline Phosphatase 107 U/L (45-117); Amylase 30 U/L (25-115); BUN Blood Urea Nitrogen 83 mg/dL (7-18); Bicarbonate 26 mmol/L (21-32); Bilirubin Direct 0.2 mg/dL (0-0.2); Bilirubin Total 0.4 mg/dL (0.2-1.0); Creatine Phosphokinase 22 U/L (26-192); Glucose Level 120 mg/dL (74-106); Lipase 82 U/L (73-393); Protein, Total 8.2 g/dL (6.4-8.2); Sodium Level 138 mmol/L (136-145); Troponin (Emerg Dept Use Only) < 0.02 ng/mL (0.0-0.045)
[2021-06-21 14:45] LABS: CKMB Creatine Kinase MB < 1.0 ng/mL (1.0-3.6)
[2021-06-21 15:51] LABS: SARS-COV-2 RT PCR NEGATIVE (NEGATIVE)
[2021-06-21] MEDS ORDERED: ALBUTEROL 2.5 MG/3 ML NEB SOL ONE (16:01)
--- NOTE | 2021-06-21 16:35 | RAD REPORT ---
EXAM DESCRIPTION: CT - Head Brain Wo Cont - 06/21/2021 3:43 pm CLINICAL HISTORY: SLURRED SPEECH COMPARISON: Head Brain Wo Cont dated 06/01/2021; Head Brain Wo Cont dated 06/26/2020 TECHNIQUE: All CT scans are performed using dose optimization technique as appropriate and may inclu de automated exposure control or mA/KV adjustment according to patient size. FINDINGS: No intracranial hemorrhage, hydrocephalus or extra-axial fluid collection.No areas of brai n edema or evidence of midline shift. Chronic small vessel ischemic changes. Right mastoid effusion. The calvarium is intact. IMPRESSION: No acute intracranial abnormality. No significant change compared with 06/01/2021.
--- NOTE | 2021-06-21 16:36 | ER ---
Nurse's Notes [facility] Name: Lauren Butterfield Age: 85 yrs Sex: Female : 1935 Arrival Date: 06/21/2021 Time: 12:50 Bed 2 Private MD: Diagnosis: Dehydration;Hypoxia Presentation: 06/21 12:53 Chief complaint: EMS states: Slurred speech for 2 days per and home health. ll1 Patient denies. 87% RA, O2 2L NC sat up to 97%. Vitals otherwise stable. Coronavirus screen: Vaccine status: Patient reports being unvaccinated. Client denies travel out of the [place] in the last 14 days. At this time, the client does not indicate any symptoms associated with coronavirus-19. Ebola Screen: Patient denies travel to an Ebola-affected area in the 21 days before illness onset. Initial Sepsis Screen: Does the patient meet any 2 criteria? RR > 20 per min. No. Patient's initial sepsis screen is negative. Does the patient have a suspected source of infection? No. Patient's initial sepsis screen is negative. Risk Assessment: Do you want to hurt yourself or someone else? Patient reports no desire to harm self or others. Onset of symptoms was June 20, 2021. 12:53 Method Of Arrival: EMS ll1 12:53 Acuity: JOHNSON 3 ll1 Triage Assessment: 13:00 General: Appears in no apparent distress. uncomfortable, Behavior is cooperative, bp appropriate for age, anxious. Pain: Denies pain. EENT: No deficits noted. Neuro: Level of Consciousness is awake, obeys commands, confused, Oriented to person, place, AT BASELINE. Cardiovascular: No deficits noted. Respiratory: Airway is patent Respiratory effort is even, unlabored. GI: No signs and/or symptoms were reported involving the gastrointestinal system. : No signs and/or symptoms were reported regarding the genitourinary system. Derm: No deficits noted. Musculoskeletal: No deficits noted. Historical: - Allergies: 12:52 No Known Allergies; ll1 - PMHx: 12:52 Hypertensive disorder; ll1 - Immunization history:: Client reports having NOT received the Covid vaccine. - Social history:: Smoking status: Patient denies any tobacco usage or history of. Screenin:00 Abuse screen: Denies threats or abuse. Denies injuries from another. Nutritional bp screening: No deficits noted. Tuberculosis screening: No symptoms or risk factors identified. Fall Risk No fall in past 12 months (0 pts). Assessment: 13:00 General: SEE TRIAGE NOTE. bp 14:00 Reassessment: No changes from previously documented assessment. Patient and/or family bp updated on plan of care and expected duration. Pain level reassessed. 15:00 Reassessment: UNABLE TO OBTAIN MIDLINE x2. PROVIDER NOTIFIED. bp 15:42 Reassessment: PT REFUSING FURTHER PIV ATTEMPTS. PROVIDER NOTIFIED. bp 17:19 Reassessment: PT REFUSING FURTHER MEDICAL INTERVENTIONS, SIGN OUT AMA. AT B/S bp FOR TRANSPORT HOME. PT AOx4, NON AMBULATORY. Vital Signs: 12:53 BP 120 / 54; Pulse 70; Resp 24; Temp 98.5(TE); Pulse Ox 94% on R/A; Weight 61.23 kg; ll1 Height 5 ft. 3 in. (160.02 cm); Pain 0/10; 14:00 BP 112 / 56; Pulse 66; Resp 17; Pulse Ox 91% on R/A; bp 15:00 BP 114 / 54; Pulse 69; Resp 19; Pulse Ox 92% ; bp 17:00 BP 123 / 53; Pulse 69; Resp 17; Temp 98; Pulse Ox 97% ; bp 12:53 Body Mass Index 23.91 (61.23 kg, 160.02 cm) ll1 ED Course: 12:50 Patient arrived in ED. am2 12:52 Arm band placed on Patient placed in an exam room, on a stretcher. ll1 12:53 Akshat Palacio NP is PHCP. pm1 12:54 Mahendra Estrada MD is Attending Physician. pm1 12:55 Triage completed. ll1 12:59 Pj Herrera, RN is Primary Nurse. bp 13:00 Patient has correct armband on for positive identification. Bed in low position. Call bp light in reach. Side rails up X2. Adult w/ patient. 13:55 Pj Herrera, RN is Primary Nurse. bp 13:58 Chest Single View XRAY In Process Unspecified. EDMS 15:43 CT Head Brain wo Cont In Process Unspecified. EDMS 17:00 No provider procedures requiring assistance completed. Patient did not have IV access bp during this emergency room visit. Administered Medications: 15:57 Not Given (Patient Refused): Rocephin - (cefTRIAXone) 1 grams IVPB once over 30 mins; bp (mix in 50 mL NS) 16:00 Drug: Albuterol 2.5 mg Route: Inhalation; bp 16:35 Not Given (Patient Refused): NS 0.9% (30 ml/kg) 30 ml/kg IV at bolus once; Sepsis bp Protocol Outcome: 17:00 AMA AMA form signed bp 17:21 Patient left the ED. iw Signatures: Dispatcher [employer] EDNimisha Evans RN RN iw Akshat Palacio NP [employer] pm1 Miriam Porras am2 Pj Herrera RN RN bp Lewis, Lynsay, RN RN ll1 Corrections: (The following items were deleted from the chart) 15:42 13:55 Inserted saline lock: 24 gauge in right forearm, using aseptic technique. Blood bp collected. bp
--- NOTE | 2021-06-21 16:36 | EDPHYS ---
Physician Documentation [facility] Name: Lauren Butterfield Age: 85 yrs Sex: Female : 1935 Arrival Date: 06/21/2021 Time: 12:50 Bed 2 Private MD: ED Physician Mahendra Estrada HPI: 06/21 13:16 This 85 yrs old Female presents to ER via EMS with complaints of Slurred pm1 speech for 2 days. 13:16 The patient's problem is reported as Slurred speech. Onset: The symptoms/episode pm1 began/occurred 2 day(s) ago. Duration: This was a single incident. Context: the episode(s) was witnessed, by family, , Possible contributing factors include: not wearing dentures per . The symptoms are alleviated by nothing. The symptoms are aggravated by nothing. Associated signs and symptoms: The patient has no apparent associated signs or symptoms, Pertinent negatives: extremity weakness. Patient's baseline: Neuro: alert and fully oriented, Motor: no deficits, Ambulation: walks with assist only, due to back pain from L1 compression fracture 3 weeks ago, Speech: normal. The patient has not experienced similar symptoms in the past. The patient has been recently seen at the [facility] Emergency Department, for unrelated complaints, Fall backwards onto buttocks 3 weeks ago resulting in Lumbar compression fracture.. Patient presents to the ER with complaints of slurred speech for 2 days. attributes to lack of wearing dentures due to decreased appetite. Patient with fall injury 3 weeks ago resulting in L1 compression fracture. Since her fracture she has been primarily laying in bed due to the pain. She has home health checking on her. On EMS arrival patient with low O2 saturation 87%. Patient does not use home O2, however patient was not complaining of shortness of breath. During EMS transfer 2 L nasal cannula improved patient to 97%.. Historical: - Allergies: 12:52 No Known Allergies; ll1 - PMHx: 12:52 Hypertensive disorder; ll1 - Immunization history:: Client reports having NOT received the Covid vaccine. - Social history:: Smoking status: Patient denies any tobacco usage or history of. ROS: 13:16 Constitutional: Negative for fever, chills, and weight loss, Cardiovascular: Negative pm1 for chest pain, palpitations, and edema. 13:16 Abdomen/GI: Negative for abdominal pain, nausea, vomiting, diarrhea, and constipation. 13:16 : Negative for injury, bleeding, discharge, and swelling, MS/Extremity: Negative for injury and deformity, Skin: Negative for injury, rash, and discoloration. 13:16 Respiratory: Positive for cough, Negative for shortness of breath, sputum production, wheezing. 13:16 Back: Positive for of the lumbar area, Pain. 13:16 Neuro: Positive for Slurred speech, Negative for dizziness, headache, numbness, tingling, Focal extremity weakness. 13:16 All other systems are negative. Exam: 13:16 Constitutional: This is a well developed, well nourished patient who is awake, alert, pm1 and in no acute distress. Head/Face: Normocephalic, atraumatic. Cardiovascular: Regular rate and rhythm with a normal S1 and S2. No gallops, murmurs, or rubs. Normal PMI, no JVD. No pulse deficits. 13:16 Skin: Warm, dry with normal turgor. Normal color with no rashes, no lesions, and no evidence of cellulitis. MS/ Extremity: Pulses equal, no cyanosis. Neurovascular intact. Full, normal range of motion. 13:16 Respiratory: Exam negative for acute changes, respiratory distress, shortness of breath, Breath sounds: bronchial sounds, that are mild, are heard diffusely. 13:16 Abdomen/GI: Exam negative for acute changes, Inspection: abdomen appears normal, Palpation: abdomen is soft and non-tender, in all quadrants. 13:16 Back: vertebral tenderness, is appreciated at lumbar area. 13:16 Neuro: Exam negative for acute changes, Orientation: is normal, Mentation: is normal, Motor: is normal, moves all fours. 16:59 Radiologist reports: CT head no acute findings pm1 Vital Signs: 12:53 BP 120 / 54; Pulse 70; Resp 24; Temp 98.5(TE); Pulse Ox 94% on R/A; Weight 61.23 kg; ll1 Height 5 ft. 3 in. (160.02 cm); Pain 0/10; 14:00 BP 112 / 56; Pulse 66; Resp 17; Pulse Ox 91% on R/A; bp 15:00 BP 114 / 54; Pulse 69; Resp 19; Pulse Ox 92% ; bp 17:00 BP 123 / 53; Pulse 69; Resp 17; Temp 98; Pulse Ox 97% ; bp 12:53 Body Mass Index 23.91 (61.23 kg, 160.02 cm) ll1 MDM: 13:09 Patient medically screened. pm1 15:36 Refusal of service: The patient/guardian displays adequate decision making capability pm1 and despite a detailed discussion of alternatives, benefits, risks, and consequences refuses: Admission to the hospital for further work-up and treatment, IV saline lock and admission. Nurses with difficulty getting IV access on multiple attempts. Patient refused EJ attempt from me. Patient agreed to have CT head prior to going home against medical advice. 16:32 Refusal of service: The patient/guardian displays adequate decision making capability pm1 and despite a detailed discussion of alternatives, benefits, risks, and consequences refuses: Admission to the hospital for further work-up and treatment, Patient with improvement in RA saturation with albuterol treatment. Will give the patient a prescription for albuterol even though she is signing against medical advice. 16:32 Data reviewed: vital signs. Data interpreted: Pulse oximetry: on room air is 95 %. pm1 Interpretation: normal. 17:10 ED course: is supporting the patient's decision to against medical advice and pm1 is getting her ready to go home. 06/21 13:11 Order name: Amylase, Serum pm1 06/21 13:11 Order name: Basic Metabolic Panel pm1 06/21 13:11 Order name: Blood Culture Adult (2) pm1 06/21 13:11 Order name: CBC with Diff pm1 06/21 13:11 Order name: CPK pm1 06/21 13:11 Order name: Ckmb; Complete Time: 14:55 pm1 06/21 13:11 Order name: LFT's; Complete Time: 14:55 pm1 06/21 13:11 Order name: Lactate; Complete Time: 14:32 pm1 06/21 13:11 Order name: Lipase; Complete Time: 14:55 pm1 06/21 13:11 Order name: Procalcitonin; Complete Time: 14:55 pm1 06/21 13:11 Order name: Protime (+inr); Complete Time: 14:23 pm1 06/21 13:11 Order name: Ptt, Activated; Complete Time: 14:23 pm1 06/21 13:11 Order name: Troponin (emerg Dept Use Only); Complete Time: 14:55 pm1 06/21 13:11 Order name: Chest Single View XRAY; Complete Time: 14:23 pm1 06/21 13:11 Order name: Strep; Complete Time: 15:22 pm1 06/21 13:11 Order name: Amylase; Complete Time: 14:55 EDMS 06/21 13:11 Order name: Basic Metabolic Panel; Complete Time: 14:55 EDMS 06/21 13:11 Order name: Blood Culture EDMS 06/21 13:11 Order name: CBC with Automated Diff EDMS 06/21 13:11 Order name: Creatine Phosphokinase; Complete Time: 14:55 EDMS 06/21 15:11 Order name: COVID-19/FLU A+B; Complete Time: 16:11 EDMS 06/21 15:20 Order name: Throat Culture EDMS 06/21 15:22 Order name: CT Head Brain wo Cont; Complete Time: 16:37 pm1 06/21 13:11 Order name: Accucheck; Complete Time: 13:56 pm1 06/21 13:11 Order name: IV Saline Lock - Large Bore; Complete Time: 13:55 pm1 06/21 13:11 Order name: Labs collected and sent; Complete Time: 13:55 pm1 06/21 13:11 Order name: O2 Per Protocol; Complete Time: 13:55 pm1 06/21 13:11 Order name: O2 Sat Monitoring; Complete Time: 13:55 pm1 Administered Medications: 15:57 Not Given (Patient Refused): Rocephin - (cefTRIAXone) 1 grams IVPB once over 30 mins; bp (mix in 50 mL NS) 16:00 Drug: Albuterol 2.5 mg Route: Inhalation; bp 16:35 Not Given (Patient Refused): NS 0.9% (30 ml/kg) 30 ml/kg IV at bolus once; Sepsis bp Protocol Disposition: 19:08 Co-signature as Attending Physician, Mahendra Estrada MD I agree with the assessment and rn plan of care. Attestation: The patient's history, exam findings, diagnostics, and a summary of any interventions or procedures was reviewed in detail with Mahendra Estrada MD. Disposition Summary: 06/21/21 16:35 Left Against Medical Advice Location: Home pm1 Problem: new pm1 Symptoms: have improved pm1 Condition: Undetermined pm1 Diagnosis - Dehydration pm1 - Hypoxia pm1 Followup: pm1 - With: Emergency Department - When: As needed - Reason: Worsening of condition Followup: pm1 - With: Private Physician - When: Upon discharge from the Emergency Department - Reason: Recheck today's complaints, Continuance of care, Re-evaluation by your physician Discharge Instructions: - Discharge Summary Sheet pm1 - Dehydration, Elderly pm1 - Rehydration, Elderly pm1 - Hypoxia pm1 Prescriptions: - Ventolin HFA 90 mcg/actuation Inhalation HFA aerosol inhaler - inhale 1 puff by INHALATION route every 4-6 hours As needed; 1 Inhaler; pm1 Refills: 0, Product Selection Permitted - Medrol (Eder) 4 mg Oral Tablets, Dose Pack - take 1 tablet by ORAL route as directed - follow package instructions; 1 pm1 packet; Refills: 0, Product Selection Permitted Signatures: Dispatcher [employer] EDMS Mahendra Estrada MD MD rn Akshat Palacio, PRODUCT/INDUSTRY CONSULTANT PRODUCT/INDUSTRY CONSULTANT pm1 Pj Herrera RN RN Pamela Kraus RN RN ll1 Corrections: (The following items were deleted from the chart) 14:58 14:38 Chest For PE Angio+CT.RAD.BRZ ordered. EDMS EDMS 15:03 13:12 CORONAVIRUS+MR.LAB.BRZ ordered. EDMS EDMS 15:11 13:12 Influenza Screen (A \T\ B)+BA.LAB.BRZ ordered. EDMS EDMS 15:11 15:03 SARS-COV-2 RT PCR ordered. EDMS EDMS
[2021-06-21 17:53] VITALS: BP 114/54; O2SAT 92
[2021-06-21 19:57] LABS: Blood Morphology Comment NOT SEEN (NOT SEEN); Platelet Estimate ADEQ; White Blood Cell Scan OK (OK)
== END 2021-06-21 17:21 | disposition left against medical advice (07) ==
LOC: ER 12:44
DX: E86.0 Dehydration (principal); R09.02 Hypoxemia; I10 Essential (primary) hypertension; Z20.822 Contact with and (suspected) exposure to COVID-19
CPT/HCPCS: 87040 ×2; 87070; 85025; 80048; 36415; 82150; 82550; 85610; 80076; 87081; 83605; 85730; 84484; 82553; 83690; 84145; 0240U; 70450; 71045; 99284

== ENCOUNTER 2021-07-16 09:09 | Inpatient (IN) | payer OTHER ==
--- OUTSIDE RECORDS SUMMARY | 2021-07-16 09:13 | XMS REPORT | Continuity of Care Document ---
:1935 Author Organization [facility] t Address [address] [place] [address] Care Team Providers Name Role Phone CARLOS A Primary Care Physician Unavailable TITO Attending Clinician Unavailable Tito WILDER Attending Clinician Juan Daniel Pompa MD Attending Clinician Blossom DIXON Attending Clinician Payers Payer Name Policy Type Policy Number Effective Date Expiration Date S madelynsmiley XIOMARA/TIO [id number] 2021 00:00:00 MCARE ADV CHOICE PPO Problems Condition Condition Condition Status Onset Resolution Last Treating Co mments Source Name Details Category Date Date Treatment Clinician Date No known No known Disease Unive rs active active ity of problems problems [facility] Allergies, Adverse Reactions, Alerts Allergy Allergy Status Severity Reaction(s) Onset Inactive Treating Comm ents Source Name Type Date Date Clinician NO KNOWN Drug Active Univers ALLERGIE Class ity of S [facility] Social History Social Habit Start Date Stop Date Quantity Comments Source History of Cigarette Smoker Universi ty of tobacco use [facility] Exposure to Not sure University of SARS-CoV-2 [facility] (event) [place] Alcohol intake 2021-07-06 2021-07-06 Lifetime University of 00:00:00 00:00:00 non-drinker [facility] (finding) [place] Tobacco use and 2021-07-06 2021-07-06 Never used Universit y of exposure 00:00:00 00:00:00 [facility] Sex [birth year] Universit y of 00:00:00 00:00:00 [facility] Smoking Status Start Date Stop Date Source Former smoker 2021-07-06 00:00:00 2021-07-06 00:00:00 [facility] Medications Ordered Filled Start Stop Current Ordering Indication Dosage Frequency Signature Comments Components Source Medication Medication Date Date Medication? Clinician (SIG) Name Name Nitrofurant 2020-08- No [id number] 100mg Take 1 Univers oin&Nit. 09-09 capsule by ity of [place] 00:00: 00:00 mouth 2 Faheem as (MACROBID) 00 :00 (two) Medical 100 mg times Branch capsule daily. Nitrofurant 2020-08- Yes [id number] 100mg Take 1 Univers oin&Nit. 09-05 capsule by ity of [place] 00:00: 05:59 mouth 2 Faheem as (MACROBID) 00 :00 (two) Medical 100 mg times Branch capsule daily for 7 days. Nitrofurant 2020-08- Yes [id number] 100mg Take 1 Univers oin&Nit. 09-05 capsule by ity of [place] 00:00: 05:59 mouth 2 Faheem as (MACROBID) 00 :00 (two) Medical 100 mg times Branch capsule daily for 7 days. Nitrofurant 2020-08- No [id number] 100mg Take 1 Univers oin&Nit. 09-05 capsule by ity of [place] 00:00: 00:00 mouth 2 Faheem as (MACROBID) 00 :00 (two) Medical 100 mg times Branch capsule daily for 7 days. ciprofloxac 2020-08- No Unive rs in HCl 250 08-25 ity of mg tablet 00:00: 00:00 [place] 00 :00 [facility] ciprofloxac 2020-08- No Unive rs in HCl 250 08-25 ity of mg tablet 00:00: 00:00 [place] 00 :00 Medical Branch albuterol 2020-08 Yes INHALE 1 Univ ers 90 1-05 PUFF BY ity of mcg/actuati 00:00: MOUTH [place] on inhaler 00 EVERY 4 TO Med ical 6 HOURS Branch NEEDED albuterol 2020-08 Yes INHALE 1 Univ ers 90 1-05 PUFF BY ity of mcg/actuati 00:00: MOUTH [place] on inhaler 00 EVERY 4 TO Med ical 6 HOURS Branch NEEDED albuterol 2020-08 Yes INHALE 1 Univ ers 90 1-05 PUFF BY ity of mcg/actuati 00:00: MOUTH [place] on inhaler 00 EVERY 4 TO Med ical 6 HOURS Branch NEEDED albuterol 2020-08 Yes INHALE 1 Univ ers 90 1-05 PUFF BY ity of mcg/actuati 00:00: MOUTH on inhaler 00 EVERY 4 TO Med ical 6 HOURS Branch NEEDED albuterol 2020-08 Yes INHALE 1 Univ ers 90 1-05 PUFF BY ity of mcg/actuati 00:00: MOUTH on inhaler 00 EVERY 4 TO Med ical 6 HOURS Branch NEEDED traMADoL 50 2020-08 Yes TAKE 1 Univ ers mg tablet 0-15 TABLET BY ity o f 00:00: MOUTH EVERY 8 Medical HOURS Branch NEEDED traMADoL 50 2020-08 Yes TAKE 1 Univ ers mg tablet 0-15 TABLET BY ity o f 00:00: MOUTH EVERY 8 Medical HOURS Branch NEEDED traMADoL 50 2020-08 Yes TAKE 1 Univ ers mg tablet 0-15 TABLET BY ity o f 00:00: MOUTH EVERY 8 Medical HOURS Branch NEEDED traMADoL 50 2020-08 Yes TAKE 1 Univ ers mg tablet 0-15 TABLET BY ity o f 00:00: MOUTH EVERY 8 Medical HOURS Branch NEEDED traMADoL 50 2020-08 Yes TAKE 1 Univ ers mg tablet 0-15 TABLET BY ity o f 00:00: MOUTH EVERY 8 Medical HOURS Branch NEEDED amLODIPine 2020-0 Yes 10mg Take 10 mg U nivers 10 mg 9-29 by mouth ity of tablet 00:00: daily. [place] [facility] amLODIPine 2020-0 Yes 10mg Take 10 mg U nivers 10 mg 9-29 by mouth ity of tablet 00:00: daily. [place] [facility] amLODIPine 2020-0 Yes 10mg Take 10 mg U nivers 10 mg 9-29 by mouth ity of tablet 00:00: daily. [place] [facility] amLODIPine 2020-0 Yes 10mg Take 10 mg U nivers 10 mg 9-29 by mouth ity of tablet 00:00: daily. [place] [facility] amLODIPine 2020-0 Yes 10mg Take 10 mg U nivers 10 mg 9-29 by mouth ity of tablet 00:00: daily. [place] [facility] atenoloL 0 Yes Univers 100 mg 9-22 ity of tablet 00:00: [place] [facility] foLIC acid 2020-0 Yes Univers 1 mg tablet 9-22 ity of 00:00: [place] [facility] pantoprazol 2020-0 Yes Univer s e 40 mg EC 9-22 ity of tablet 00:00: [place] [facility] atenoloL 2020-0 Yes Univers 100 mg 9-22 ity of tablet 00:00: [address] foLIC acid 2020-0 Yes Univers 1 mg tablet 9-22 ity of 00:00: [address] pantoprazol 2020-0 Yes Univer s e 40 mg EC 9-22 ity of tablet 00:00: [place] [facility] atenoloL 2020-0 Yes Univers 100 mg 9-22 ity of tablet 00:00: [address] foLIC acid 2020-0 Yes Univers 1 mg tablet 9-22 ity of 00:00: [place] [facility] pantoprazol 2020-0 Yes Univer s e 40 mg EC 9-22 ity of tablet 00:00: [address] atenoloL 2020-0 Yes Univers 100 mg 9-22 ity of tablet 00:00: [address] foLIC acid 2020-0 Yes Univers 1 mg tablet 9-22 ity of 00:00: [address] pantoprazol 2020-0 Yes Univer s e 40 mg EC 9-22 ity of tablet 00:00: [address] atenoloL 2020-0 Yes Univers 100 mg 9-22 ity of tablet 00:00: [address] foLIC acid 2020-0 Yes Univers 1 mg tablet 9-22 ity of 00:00: [address] pantoprazol 2020-0 Yes Univer s e 40 mg EC 9-22 ity of tablet 00:00: [address] Immunizations Ordered Filled Immunization Date Status Comments Sour e Immunization Name Name Influenza Virus 2021-06-18 Completed Universit y of Vaccine - Whole 00:00:[address] [facility] [place] [place] Influenza Virus 2021-06-18 Completed Universit y of Vaccine - Whole 00:00:[address] [facility] [place] [place] Influenza Virus 2021-06-18 Completed Universit y of Vaccine - Whole 00:00:[address] [facility] [place] [place] Influenza Virus 2021-06-18 Completed Universit y of Vaccine - Whole 00:00:[address] [facility] [place] [place] Influenza Virus 2021-06-18 Completed Universit y of Vaccine - Whole 00:00:[address] [facility] [place] [place] SARS-COV-2 COVID-19 2020-11-07 Completed Unive rsity of MODERNA VACCINE 00:00:[address] [facility] [place] [place] SARS-COV-2 COVID-19 2020-11-07 Completed Unive rsity of MODERNA VACCINE 00:00:[address] [facility] [place] [place] SARS-COV-2 COVID-19 2020-11-07 Completed Unive rsity of MODERNA VACCINE 00:00:[address] [facility] [place] [place] SARS-COV-2 COVID-19 2020-11-07 Completed Unive rsity of MODERNA VACCINE 00:00:[address] [facility] [place] [place] SARS-COV-2 COVID-19 2020-11-07 Completed Unive rsity of MODERNA VACCINE 00:00:[address] [facility] [place] [place] SARS-COV-2 COVID-19 2020-10-09 Completed Unive rsity of MODERNA VACCINE 00:00:[address] [facility] [place] [place] SARS-COV-2 COVID-19 2020-10-09 Completed Unive rsity of MODERNA VACCINE 00:00:[address] [facility] [place] [place] SARS-COV-2 COVID-19 2020-10-09 Completed Unive rsity of MODERNA VACCINE 00:00:[address] [facility] [place] [place] SARS-COV-2 COVID-19 2020-10-09 Completed Unive rsity of MODERNA VACCINE 00:00:[address] [facility] [place] [place] SARS-COV-2 COVID-19 2020-10-09 Completed Unive rsity of MODERNA VACCINE 00:00:[address] [facility] [place] Vital Signs Vital Name Observation Time Observation Value Comments Source Systolic blood 2021-07-15 19:00:00 100 mm[Hg] Univer sity of pressure [facility] Diastolic blood 2021-07-15 19:00:00 48 mm[Hg] Unive rsity of pressure [facility] Heart rate 2021-07-15 19:00:00 65 /min Universi ty of [facility] Respiratory rate 2021-07-15 19:00:00 18 /min [facility] Oxygen saturation in 2021-07-15 19:00:00 85 /min [facility] Arterial blood by [facility] Pulse oximetry Branch Body temperature 2021-07-15 16:56:00 36 [facility] Body height 2021-07-15 16:56:00 160 cm Universi ty of [facility] Body weight 2021-07-15 16:56:00 61.236 kg Universi ty of [facility] BMI 2021-07-15 16:56:00 23.91 kg/m2 Universi [facility] Systolic blood 2021-07-06 18:13:00 93 mm[facility]Hg[facility] Diastolic blood 2021-07-06 18:13:00 50 mm[Hg] [facility] Heart rate 2021-07-06 18:13:00 74 /min Universi [facility] Body temperature 2021-07-06 18:13:00 36.33 Samantha [facility] Respiratory rate 2021-07-06 18:13:00 18 /min [facility] Body height 2021-07-06 18:13:00 160 cm Universi ty of [facility] Body weight 2021-07-06 18:13:00 61.236 kg Universi ty [facility] BMI 2021-07-06 18:13:00 23.91 kg/m2 Universi [facility] Procedures Procedure Date / Time Performing Clinician Source Performed COMP. METABOLIC PANEL 2021-07-15 18:45:[address] [facility] ([id number]) [facility] TROPONIN I 2021-07-15 17:33:00 Freddy Francis [facility] CBC WITH DIFF 2021-07-15 17:33:00 Freddy Francis [facility] PROTHROMBIN TIME / INR 2021-07-15 17:33:00 Freddy Francis [facility] ACTIVATED PARTIAL 2021-07-15 17:33:00 [facility] PRO-BNP 2021-07-15 17:33:00 Freddy Francis y of [facility] COVID-19 (ID NOW RAPID 2021-07-15 17:33:00 Freddy Francis [facility]) Medical Branch XR CHEST 1 VW 2021-07-15 17:14:51 Freddy Francis o f [facility] POCT URINALYSIS W/O 2021-07-06 00:00:00 Neema Pompa ty of [place] SPECIFIC GRAVITY [facility] Encounters Start End Encounter Admission Attending Care Care Encounter Source Date/Time Date/Time Type Type Clinicians Facility Department ID 2021-07-16 2021-07-16 Outpatient R [facility] [id number] Univers 10:00:00 10:00:00 [id number] ity [facility] 2021-07-15 2021-07-15 [facility] [id number] Univers 10:52:00 15:50:00 FREDDY [facility] 2021-07-15 2021-07-15 Emergency [facility] [id number] Univers 10:52:00 15:50:00 Freddy BACA [id number] i ty [place] [employer] [place] [id number] [facility] 084 Branch 2021-07-11 2021-07-11 Telephone Neema Pompa [facility] [id number] Univers 00:00:00 00:00:00 Juan Daniel CULVER [id number] it y [place] [facility] [id number] [facility] 134 Branch 2021-07-10 2021-07-10 [facility] [id number] Univers 00:00:00 00:00:00 Management Nelida BACA [id number] ity [place] [employer] [place] [id number] Mn dical [facility] 134 Branch BUILDING 2021-07-06 2021-07-06 Office Neema Pompa [facility] [id number] Univers 11:25:13 14:05:47 Visit Juan Daniel CULVER [id number] it y of WOMEN'S 4.2.7.2.686 [employer] [id number] [facility] 134 Branch Results Test Description Test Time Test Comments Results Result Comments Source COMP. METABOLIC PANEL (18012) 2021-07-15 19:10:56 Test Item Value Reference Range Interpretation Comme nts NA (test code = 1511601279) 135 mmol/L 135-145 K (test code = 4299494274) 4.5 mmol/L 3.5-5.0 CL (test code = 0056733272) 99 mmol/L 98-108 CO2 TOTAL (test code = 1313131527) 31 mmol/L 23-31 AGAP (test code = 8022261997) 2-16 BUN (test code = 7935165981) 41 mg/dL 7-23 H GLUCOSE (test code = 8827886331) 114 mg/dL 70-110 H CREATININE (test code = 1.16 mg/dL 0.50-1.04 H 1814387817) TOTAL BILI (test code = 0.3 mg/dL 0.1-1.0 4020168099) CALCIUM (test code = 1587648763) 9.3 mg/dL 8.6-10.6 T PROTEIN (test code = 0393388520) 6.8 g/dL 6.3-8.2 ALBUMIN (test code = 7224556332) 3.3 g/dL 3.5-5.0 L ALK PHOS (test code = 6031762083) 65 U/L 34-122 ALTv (test code = 1742-6) 9 U/L 5-35 AST(SGOT) (test code = 6199540070) 17 U/L 13-40 eGFR (test code = 6401902766) mL/min/1.73m2 MARGE (test code = MARGE) Association of Glomerular Filtration Rate (GFR) and Staging of Kidney Disease* + +-------- + ------+| GFR (mL/min/1.73 m2) ?| With Kidney Damage ?| ?Without Kidney Damage+ +-- + +| ?>90 ?| ?Stage one ?| ? Normal ?+ +------- + -------+| ?60-89 ?| ?Stage two ?| ? Decreased GFR ? + +-------- + ------+| ?30-59 ?| ?Stage three ?| ? Stage three ? + +-------- + ------+| ?15-29 ?| ?Stage four ? | ? Stage four ?+ +------- + -------+| ?<15 (or dialysis) ? ?| ?Stage five ? | ? Stage five ?+ +------- + -------+ *Each stage assumes the associated GFR level has been in effect for at least three months. ?Stages 1 to 5, with or without kidney disease, indicate chronic kidney disease. Notes: Determination of stages one and two (with eGFR >59mL/min/1.73 m2) requires estimation of kidney damage for at least three months as defined by structural or functional abnormalities of the kidney, manifested by either:Pathological abnormalities or Markers of kidney damage (including abnormalities in the composition of the blood or urine or abnormalities in imaging tests). Lab Interpretation (test code = Abnormal 25379-6) [facility] [id number] 18:14:52 Test Item Value Reference Interpretation Comments Range TROPONIN I (test 0.007 ng/mL See_Comment [Automated code = 9787063545) message] The system which generated this result transmitted reference range : <=0.034. The reference range was not used to interpret this result as normal/abnormal . MARGE (test code = Reference (Normal) MARGE) Range (defined by the 99th percentile reference limit): <= 0.034 ng/mL Note: Cardiac troponin begins to rise 3-4 hours after the onset of ischemia. Repeat in 4-6 hours if the sample was drawn within 3-4 hours of the onset of the symptom and found normal. Diagnosis of myocardial injury is made with acute changes in cTn concentrations with at least one serial sample above the 99th percentile upper reference limit (URL), taken together with the patient's clinical presentation. Biotin has been reported to cause a negative bias, interpret results relative to patient's use of biotin. Lab Interpretation Normal (test code = 23354-7) [facility] [id number] 18:11:36 Test Item Value Reference Range Interpretation Comments NT-proBNP (test code 3370 pg/mL See_Comment H [Autom ated = 9395661366) message] The system which generated this result transmitted reference range : <=450. The reference range was not used to interpret this result as normal/abnormal . MARGE (test code = MARGE) Biotin has been reported to cause a negative bias, interpret results relative to patient's use of biotin. Lab Interpretation Abnormal (test code = 15403-1) [facility] THRMPLAS [id number] 17:57:34 Test Item Value Reference Range Interpretation Comments APTT Patient (test See_Comment [Automat ed code = 3173-2) message] The system which generated this result transmitted reference range : 23 - 38 Seconds . The reference range was not used to interpr et this result as normal/abnormal . MARGE (test code = MARGE) The [facility] patient population mean normal value for aPTT is 30 seconds. Lab Interpretation Normal (test code = 07088-4) [facility] CenterPROTHR[facility] TIME / [id number] 17:55:34 Test Item Value Reference Range Interpretation Comments PROTIME PATIENT (test See_Comment [Auto mated message] code = 5964-2) The system wh ich generated this result transmitted ref erence range: 12.0 - 1 4.7 Seconds. The re ference range was not u sed to interpret this result as normal/abnor mal. INR (test code = 6301-6) Nor mal INR <1.1; Warfarin Therap eutic range 2.0 to 3. 0 or 2.5 to 3.5, dep ending upon the indica tions. Lab Interpretation (test Normal code = 84927-1) [facility] Center[facility] WITH [id number] 17:47:53 Test Item Value Reference Range Interpretation Comments WBC (test code = See_Comment [Automated 2690-2) message] The sy stem which generated this result transmitted reference range : 4.30 - 11.10 10*3/?L. The reference range was not used to interpret this result as normal/abnormal . RBC (test code = See_Comment L [Automated 119-8) message] The sy stem which generated this result transmitted reference range : 3.93 - 5.25 10*6/?L. The reference range was not used to interpret this result as normal/abnormal . HGB (test code = 11.1 g/dL 11.6-15.0 L 718-7) HCT (test code = 35.3 % 35.7-45.2 L 4544-3) MCV (test code = 103.2 fL 80.6-95.5 H 787-2) MCH (test code = 32.5 pg 25.9-32.8 785-6) MCHC (test code = 31.4 g/dL 31.6-35.1 L 786-4) RDW-SD (test code = 52.9 fL 39.0-49.9 H 80764-7) RDW-CV (test code = 13.9 % 12.0-15.5 788-0) PLT (test code = See_Comment [Automated 777-3) message] The sy stem which generated this result transmitted reference range : 166 - 358 10*3/ ?L. The reference r yvette was not used to interpret this result as normal/abnormal . MPV (test code = 10.4 fL 9.5-12.9 43367-8) NRBC/100 WBC (test See_Comment [Automat ed code = 4097116979) message] The system which generated this result transmitted reference range : 0.0 - 10.0 /100 WBCs. The refer ence range was not u sed to interpret th is result as normal/abnormal . NRBC x10^3 (test code <0.01 See_Comment [Auto mated = 6042898241) message] The s ystem which generated this result transmitted reference range : 10*3/?L. The reference range was not used to interpret this result as normal/abnormal . GRAN MAT (NEUT) % 64.0 % (test code = 770-8) IMM GRAN % (test code 1.20 % = 3593445794) LYMPH % (test code = 13.5 % 736-9) MONO % (test code = 12.5 % 5905-5) EOS % (test code = 8.2 % 713-8) BASO % (test code = 0.6 % 706-2) GRAN MAT x10^3(ANC) 5.98 10*3/uL 1.88-7.09 (test code = 4809614503) IMM GRAN x10^3 (test 0.11 10*3/uL 0.00-0.06 H code = 9628726296) LYMPH x10^3 (test code 1.26 10*3/uL 1.32-3.29 L = 731-0) MONO x10^3 (test code 1.17 10*3/uL 0.33-0.92 H = 742-7) EOS x10^3 (test code = 0.77 10*3/uL 0.03-0.39 H 711-2) BASO x10^3 (test code 0.06 10*3/uL 0.01-0.07 = 704-7) Lab Interpretation Abnormal (test code = 17593-7) [facility] W/O SPECIFIC [id number] 18:33:00 Test Item Value Reference Range Interpretation Comments POCT PH U (test code = 3254) 5 mg/dl 5-8 POCT U LEUK EST (test code = 1+ Negative - Negative 3263) POCT U NIT (test code = 3262) negative Negative - Negative POCT U PROT (test code = 3259) trace Negative - Negative POCT U GLU (test code = 3256) negative Negative - Negative POCT U KETONE (test code = 3258) trace Negative - Negative POCT U BLD (test code = 3257) trace Negative - Negative [facility] W/O SPECIFIC [id number] 18:33:00 Test Item Value Reference Range Interpretation Comments POCT PH U (test code = 3254) 5 mg/dl 5-8 POCT U LEUK EST (test code = 1+ Negative - Negative 3263) POCT U NIT (test code = 3262) negative Negative - Negative POCT U PROT (test code = 3259) trace Negative - Negative POCT U GLU (test code = 3256) negative Negative - Negative POCT U KETONE (test code = 3258) trace Negative - Negative POCT U BLD (test code = 3257) trace Negative - Negative [facility]"
--- NOTE | 2021-07-16 12:40 | RAD REPORT ---
EXAM DESCRIPTION: RAD - Chest Single View - 07/16/2021 12:30 pm CLINICAL HISTORY: Cough;Dyspnea Chest pain. COMPARISON: Chest Single View dated 06/21/2021; Chest Single View dated 11/08/2020; Chest Single View dated 06/26/2020; Chest Pa And Lat (2 Views) dated 06/08/2020 FINDINGS: Portable technique limits examination quality. Pulmonary interstitial markings are prominent bilaterally, appearing chronic in this patient. Right p leural effusion is noted with probable bibasilar lung infiltrate pattern present. The heart is modera tely enlarged. Aortic atherosclerosis. IMPRESSION: Bibasilar lung infiltrate pattern is seen suspicious for pneumonia.
--- NOTE | 2021-07-16 13:50 | EDPHYS ---
Physician Documentation [facility] Name: Lauren Butterfield Age: 85 yrs Sex: Female : 1935 Arrival Date: 07/16/2021 Time: 09:16 Bed 16 Private MD: BRANDON Physician Andres Fonseca HPI: 07/16 12:39 This 85 yrs old Female presents to ER via Wheelchair with complaints of Low adonis O2. 12:39 The patient has shortness of breath at rest, with light activity. Onset: The adonis symptoms/episode began/occurred 3 day(s) ago. Duration: The symptoms are continuous, and are steadily getting worse. The patient's shortness of breath is aggravated by supine position, talking, is alleviated by. Associated signs and symptoms: The patient has no apparent associated signs or symptoms. Severity of symptoms: At their worst the symptoms were mild moderate in the emergency department the symptoms have improved mildly. The patient has experienced similar episodes in the past, several times. Historical: - Allergies: 09:33 No Known Allergies; ss - Home Meds: 09:33 amlodipine 10 mg tab 1 tab once daily [Active]; pantoprazole 40 mg Oral TbEC 1 tab once ss daily [Active]; folic acid 1 mg Oral tab 1 tab once daily [Active]; atenolol 100 mg Oral tab 1 tab once daily [Active]; - PMHx: 09:33 Hypertensive disorder; ss - Immunization history:: Client reports receiving the 2nd dose of the Covid vaccine. - Social history:: Smoking status: Patient denies any tobacco usage or history of. ROS: 12:45 Constitutional: Negative for fever, chills, and weight loss, Eyes: Negative for injury, adonis pain, redness, and discharge, ENT: Negative for injury, pain, and discharge, Neck: Negative for injury, pain, and swelling, Cardiovascular: Negative for chest pain, palpitations, and edema, Abdomen/GI: Negative for abdominal pain, nausea, vomiting, diarrhea, and constipation, Back: Negative for injury and pain, : Negative for injury, bleeding, discharge, and swelling, MS/Extremity: Negative for injury and deformity, Skin: Negative for injury, rash, and discoloration, Neuro: Negative for headache, weakness, numbness, tingling, and seizure, Psych: Negative for depression, anxiety, suicide ideation, homicidal ideation, and hallucinations, Allergy/Immunology: Negative for hives, rash, and allergies, Endocrine: Negative for neck swelling, polydipsia, polyuria, polyphagia, and marked weight changes, Hematologic/Lymphatic: Negative for swollen nodes, abnormal bleeding, and unusual bruising. 12:45 Respiratory: Positive for cough, with no reported sputum, shortness of breath, at rest. Exam: 12:45 Constitutional: This is a well developed, well nourished patient who is awake, alert, adonis and in no acute distress. Head/Face: Normocephalic, atraumatic. Eyes: Pupils equal round and reactive to light, extra-ocular motions intact. Lids and lashes normal. Conjunctiva and sclera are non-icteric and not injected. Cornea within normal limits. Periorbital areas with no swelling, redness, or edema. ENT: Nares patent. No nasal discharge, no septal abnormalities noted. Tympanic membranes are normal and external auditory canals are clear. Oropharynx with no redness, swelling, or masses, exudates, or evidence of obstruction, uvula midline. Mucous membranes moist. Neck: Trachea midline, no thyromegaly or masses palpated, and no cervical lymphadenopathy. Supple, full range of motion without nuchal rigidity, or vertebral point tenderness. No Meningismus. Chest/axilla: Normal chest wall appearance and motion. Nontender with no deformity. No lesions are appreciated. Cardiovascular: Regular rate and rhythm with a normal S1 and S2. No gallops, murmurs, or rubs. Normal PMI, no JVD. No pulse deficits. Abdomen/GI: Soft, non-tender, with normal bowel sounds. No distension or tympany. No guarding or rebound. No evidence of tenderness throughout. Back: No spinal tenderness. No costovertebral tenderness. Full range of motion. Female : Normal external genitalia. Skin: Warm, dry with normal turgor. Normal color with no rashes, no lesions, and no evidence of cellulitis. MS/ Extremity: Pulses equal, no cyanosis. Neurovascular intact. Full, normal range of motion. Neuro: Awake and alert, GCS 15, oriented to person, place, time, and situation. Cranial nerves II-XII grossly intact. Motor strength 5/5 in all extremities. Sensory grossly intact. Cerebellar exam normal. Normal gait. Psych: Awake, alert, with orientation to person, place and time. Behavior, mood, and affect are within normal limits. 12:45 Respiratory: the patient does not display signs of respiratory distress, Respirations: normal, Breath sounds: decreased breath sounds, rhonchi, that are mild, stridor, is not appreciated. 17:43 ECG was reviewed by the Attending Physician. [facility] Vital Signs: 09:28 BP 134 / 57; Pulse 82; Resp 18; Temp 98.2(TE); Pulse Ox 74% on R/A; Weight 61.23 kg; ss Pain 0/10; 09:28 Pulse Ox 94% on 2 lpm NC; ss 13:00 BP 117 / 52; Pulse 75; Resp 20 S; Pulse Ox 94% on 2 lpm NC; as6 14:00 BP 114 / 70; Pulse 75; Resp 20; Pulse Ox 98% on 2 lpm NC; as6 15:00 BP 118 / 54; Pulse 81; Resp 22 S; Pulse Ox 97% on 2 lpm NC; as6 16:00 BP 116 / 52; Pulse 81; Resp 18 S; Pulse Ox 95% on 2 lpm NC; as6 17:06 BP 115 / 52; Pulse 75; Resp 16; Pulse Ox 97% on NC; as6 18:59 BP 120 / 52; Pulse 75; Resp 20; Pulse Ox 100% on 4 lpm NC; ld1 Procedures: 14:47 Peripheral line: by aseptic technique a peripheral line was placed in the left external adonis jugular vein. MDM: 12:09 Patient medically screened. [facility] 12:48 Differential diagnosis: Anemia Bronchitis CHF exacerbation, Chronic Obstructive adonis Pulmonary Disease pneumonia, pulmonary edema, Pulmonary Embolism reactive airway disease, Sepsis. Antibiotic administration: Not indicated. The patient's Wells Deep Vein Thrombosis Score was calculated as follows: Total Score: 0-2 Pts- Low Risk. Differential Diagnosis: Bronchitis Influenza Upper Respiratory Infection Sinusitis Pharyngitis Otitis Media Viral Syndrome Pneumonia. The patient's pulmonary embolism risk score was calculated as follows: Total Score: 0-2 points. This patient was found to be at low risk for a pulmonary embolism by using the Well's assessment criteria. Immunization status: Pneumococcal vaccine: Influenza vaccine: Data reviewed: vital signs, nurses notes, lab test result(s), EKG, radiologic studies, plain films. Data interpreted: clinical research monitor: rate is 82 beats/min, rhythm is regular, Pulse oximetry: on room air is 94 %. Test interpretation: by ED physician or midlevel provider: ECG, plain radiologic studies. Counseling: I had a detailed discussion with the patient and/or guardian regarding: the historical points, exam findings, and any diagnostic results supporting the discharge/admit diagnosis, lab results, radiology results, the need for outpatient follow up, the need for further work-up and treatment in the hospital. 07/16 12:11 Order name: Basic Metabolic Panel; Complete Time: 16:10 [facility] 07/16 12:11 Order name: CBC with Diff; Complete Time: 15:12 [facility] 07/16 12:11 Order name: LFT's; Complete Time: 16:10 [facility] 07/16 12:11 Order name: Magnesium; Complete Time: 16:10 [facility] 07/16 12:11 Order name: NT PRO-BNP; Complete Time: 16:10 [facility] 07/16 12:11 Order name: PT-INR; Complete Time: 15:24 [facility] 07/16 12:11 Order name: Troponin (emerg Dept Use Only); Complete Time: 16:10 [facility] 07/16 12:11 Order name: Blood Culture Adult (2) [facility] 07/16 12:11 Order name: SARS-COV-2 RT PCR (Document "Date of Onset" if Symptomatic) [facility] 07/16 12:11 Order name: Flu [facility] 07/16 12:11 Order name: RSV [facility] 07/16 12:11 Order name: Lactate; Complete Time: 15:24 [facility] 07/16 12:37 Order name: ABG: ROOM AIR [facility] 07/16 12:38 Order name: ABG Arterial Blood Gas; Complete Time: 15:12 [facility] 07/16 12:11 Order name: XRAY Chest (1 view); Complete Time: 13:43 [facility] 07/16 12:52 Order name: D-Dimer [facility] 07/16 12:52 Order name: D-Dimer; Complete Time: 15:24 [facility] 07/16 16:33 Order name: CT Chest Wo Con [facility] 07/16 16:33 Order name: VQ scan (Nuclear Medicine) [facility] 07/16 16:33 Order name: US Extremity Venous W Compression Constantin [facility] 07/16 18:03 Order name: US EDPR 07/16 18:51 Order name: CT [facility] 07/16 19:15 Order name: COVID-19/FLU A+B/RSV EDPR 07/16 22:55 Order name: Troponin I EDPR 07/17 04:00 Order name: CBC with Automated Diff EDPR 07/17 04:18 Order name: Basic Metabolic Panel EDPR 07/17 04:18 Order name: NT PRO-BNP EDPR 07/16 12:11 Order name: EKG; Complete Time: 12:14 [facility] 07/16 12:11 Order name: Cardiac monitoring; Complete Time: 12:57 [facility] 07/16 12:11 Order name: EKG - Nurse/Tech; Complete Time: 17:45 [facility] 07/16 12:11 Order name: IV Saline Lock; Complete Time: 16:22 [facility] 07/16 12:11 Order name: Labs collected and sent; Complete Time: 16:22 [facility] 07/16 12:11 Order name: O2 Per Protocol; Complete Time: 12:57 [facility] 07/16 12:11 Order name: O2 Sat Monitoring; Complete Time: 12:57 [facility] 07/16 13:21 Order name: Diet Regular; Complete Time: 13:21 07/16 14:04 Order name: CONS Physician Consult EDPR EC:43 Rate is 100 beats/min. Rhythm is regular. QRS [place] is Normal. CO interval is normal. [facility] QRS interval is prolonged at 134 msec. QT interval is normal. No Q waves. T waves are Normal. No ST changes noted. Clinical impression: Abnormal EKG without significant change and No evidence of ischemia. Interpreted by me. Reviewed by me. Administered Medications: 14:24 Drug: Xopenex (levalbuterol) 1.25 mg Route: Inhalation; as6 15:00 Follow up: Response: No adverse reaction as6 14:24 Drug: AtroVENT (ipratropium) Aerosol 0.5 mg Route: Inhalation; as6 15:00 Follow up: Response: No adverse reaction as6 14:57 Drug: NS 0.9% 1000 ml Route: IV; Rate: 75 ml/hr; Site: left jugular; as6 16:41 Follow up: Response: No adverse reaction; IV Status: Completed infusion; IV Intake: as6 1000ml 14:57 Drug: Zosyn (piperacillin-tazobactam) 3.375 grams Route: IVPB; Infused Over: 60 mins; as6 Site: left jugular; 15:30 Follow up: Response: No adverse reaction; IV Status: Completed infusion; IV Intake: as6 1000ml 15:37 Drug: NS 0.9% 500 ml Route: IV; Rate: bolus; Site: left jugular; as6 16:42 Follow up: Response: No adverse reaction; IV Status: Completed infusion; IV Intake: as6 500ml 17:26 Drug: Lovenox (enoxaparin) 40 mg Route: Sub-Q; Site: abdomen; ld1 17:26 Follow up: Response: No adverse reaction ld1 17:26 Drug: ProTONIX (pantoprazole) 40 mg Route: IVP; Site: left jugular; ld1 17:26 Follow up: Response: No adverse reaction ld1 Disposition Summary: 07/16/21 13:50 Hospitalization Ordered Hospitalization Status: Inpatient Admission adonis Provider: Bassam Espitia cha Condition: Stable adonis Problem: new adonis Symptoms: have improved adonis Bed/Room Type: Standard adonis Location: Telemetry/MedSurg (Inpatient)(07/17/21 07:40) bd Room Assignment: 428(07/17/21 07:40) bd Diagnosis - Dyspnea adonis - Hypoxemia adonis - Unspecified bacterial pneumonia - aspiration adonis - Weakness adonis Forms: - Medication Reconciliation Form adonis - SBAR form adonis Signatures: Dispatcher [employer] EDMS Cally Cotton Corey, MD MD cha Smirch, Shelby, RN RN ss Cristin Maldonado RN RN ld1 Aníbal Ocampo RN RN as6 Corrections: (The following items were deleted from the chart) 17:01 13:50 Telemetry/MedSurg (Inpatient) adonis bd 17: 13:50 adonis bd 07/17 07:40 07/16 17:01 [facility] ER HOLD bd bd 07/17 07:40 07/16 17:01 ERHOLD- bd bd
--- NOTE | 2021-07-16 13:50 | ER ---
Nurse's Notes [facility] Name: Lauren Butterfield Age: 85 yrs Sex: Female : 1935 Arrival Date: 07/16/2021 Time: 09:16 Bed 16 Private MD: Diagnosis: Dyspnea;Hypoxemia;Unspecified bacterial pneumonia-aspiration;Weakness Presentation: 07/16 09:28 Chief complaint: Spouse and/or significant other states: Was seen in ER on 06/21 and ss diagnosed with dehydration and hypoxia. states that the doctor wanted to do a CT, but the patient refused any additional pokes and signed out AMA. Pt was seen at [facility] last night and signed out AMA because they wanted to transfer her to [facility]. Pt's states that they just want to get home 02 set up. Coronavirus screen: Client denies travel out of the [place] in the last 14 days. Ebola Screen: Patient denies exposure to infectious person. Patient denies travel to an Ebola-affected area in the 21 days before illness onset. 09:28 Method Of Arrival: Wheelchair ss 09:28 Initial Sepsis Screen: Does the patient meet any 2 criteria? No. Patient's initial ss sepsis screen is negative. Does the patient have a suspected source of infection? No. Patient's initial sepsis screen is negative. Risk Assessment: Do you want to hurt yourself or someone else? Patient reports no desire to harm self or others. Onset of symptoms is unknown. 09:28 Acuity: JOHNSON 3 ss Historical: - Allergies: :33 No Known Allergies; ss - Home Meds: :33 amlodipine 10 mg tab 1 tab once daily [Active]; pantoprazole 40 mg Oral TbEC 1 tab once ss daily [Active]; folic acid 1 mg Oral tab 1 tab once daily [Active]; atenolol 100 mg Oral tab 1 tab once daily [Active]; - PMHx: 09:33 Hypertensive disorder; ss - Immunization history:: Client reports receiving the 2nd dose of the Covid vaccine. - Social history:: Smoking status: Patient denies any tobacco usage or history of. Screenin:27 Abuse screen: Denies threats or abuse. Nutritional screening: No deficits noted. as6 Tuberculosis screening: No symptoms or risk factors identified. Fall Risk Fall in past 12 months (25 points). Secondary diagnosis (15 points) dementia, Gait- Weak (10 pts.). Mental Status- Overestimates/Forgets Limitations (15 pts.). Total Ulrich Fall Scale indicates High Risk Score (45 or more points). Side Rails Up X 2 Placed Close to Nursing Station Frequent Obs/Assessments Occuring As available patient and family educated on Fall Prevention Program and Strategies. Assessment: 13:25 General: Appears in no apparent distress. comfortable, Behavior is restless. Pain: as6 Complains of pain in back. Neuro: Level of Consciousness is awake, alert, Oriented to person. Cardiovascular: Capillary refill < 3 seconds Patient's skin is warm and dry. Respiratory: Airway is patent Trachea midline Respiratory effort is even, unlabored, Respiratory pattern is regular, symmetrical, Breath sounds with crackles bilaterally. Derm: Skin is intact. Musculoskeletal: Parent/caregiver report the patient having weakness in generalzied weakness. Vital Signs: 09:28 BP 134 / 57; Pulse 82; Resp 18; Temp 98.2(TE); Pulse Ox 74% on R/A; Weight 61.23 kg; ss Pain 0/10; 09:28 Pulse Ox 94% on 2 lpm NC; ss 13:00 BP 117 / 52; Pulse 75; Resp 20 S; Pulse Ox 94% on 2 lpm NC; as6 14:00 BP 114 / 70; Pulse 75; Resp 20; Pulse Ox 98% on 2 lpm NC; as6 15:00 BP 118 / 54; Pulse 81; Resp 22 S; Pulse Ox 97% on 2 lpm NC; as6 16:00 BP 116 / 52; Pulse 81; Resp 18 S; Pulse Ox 95% on 2 lpm NC; as6 17:06 BP 115 / 52; Pulse 75; Resp 16; Pulse Ox 97% on NC; as6 18:59 BP 120 / 52; Pulse 75; Resp 20; Pulse Ox 100% on 4 lpm NC; ld1 ED Course: 09:16 Patient arrived in ED. mr 09:33 Triage completed. ss 09:33 Arm band placed on left wrist. ss 12:09 Andres Fonseca MD is Attending Physician. adonis 12:17 Aníbal Ocampo, ROXANNA is Primary Nurse. as6 12:30 XRAY Chest (1 view) In Process Unspecified. EDMS 13:28 Bed in low position. Call light in reach. Side rails up X2. Pulse ox on. NIBP on. Warm as6 blanket given. 13:28 Missed attempt(s): 22 gauge in left antecubital area. Bleeding controlled, band aid as6 applied, catheter tip intact. Missed attempt(s): 24 gauge in right forearm. Bleeding controlled, band aid applied, catheter tip intact. 13:46 Bassam Espitia MD is Hospitalizing Provider. [facility] 17:45 SARS-COV-2 RT PCR (Document "Date of Onset" if Symptomatic) Sent. ld1 Administered Medications: 14:24 Drug: Xopenex (levalbuterol) 1.25 mg Route: Inhalation; as6 15:00 Follow up: Response: No adverse reaction as6 14:24 Drug: AtroVENT (ipratropium) Aerosol 0.5 mg Route: Inhalation; as6 15:00 Follow up: Response: No adverse reaction as6 14:57 Drug: NS 0.9% 1000 ml Route: IV; Rate: 75 ml/hr; Site: left jugular; as6 16:41 Follow up: Response: No adverse reaction; IV Status: Completed infusion; IV Intake: as6 1000ml 14:57 Drug: Zosyn (piperacillin-tazobactam) 3.375 grams Route: IVPB; Infused Over: 60 mins; as6 Site: left jugular; 15:30 Follow up: Response: No adverse reaction; IV Status: Completed infusion; IV Intake: as6 1000ml 15:37 Drug: NS 0.9% 500 ml Route: IV; Rate: bolus; Site: left jugular; as6 16:42 Follow up: Response: No adverse reaction; IV Status: Completed infusion; IV Intake: as6 500ml 17:26 Drug: Lovenox (enoxaparin) 40 mg Route: Sub-Q; Site: abdomen; ld1 17:26 Follow up: Response: No adverse reaction ld1 17:26 Drug: ProTONIX (pantoprazole) 40 mg Route: IVP; Site: left jugular; ld1 17:26 Follow up: Response: No adverse reaction ld1 Intake: 15:30 IV: 1000ml; Total: 1000ml. as6 16:41 IV: 1000ml; Total: 2000ml. as6 16:42 IV: 500ml; Total: 2500ml. as6 Outcome: 13:50 Decision to Hospitalize by Provider. adonis 07/17 08:27 Patient left the ED. bd Signatures: Dispatcher [employer] EDMS Cally Cotton Corey, MD MD cha Rivera, Oriana mr Nadia Ibarra, RN RN ss Cristin Maldonado RN RN ld1 Aníbal Ocampo RN RN as6
[2021-07-16 13:52] LABS: Arterial Blood Carboxyhemoglob 1.5 % (0-1.5); Blood Gas Oxyhemoglobin 83.5 % (94-97); Blood O2 Saturation 85.7 % (92-98.5)
[2021-07-16] MEDS ORDERED: IPRATROPIUM BROM 0.5MG/2.5ML ONE (13:59)
[2021-07-16] MEDS ORDERED: NA CHLORIDE 0.9% 1,000 ML ONE (13:59)
[2021-07-16] MEDS ORDERED: NA CHLORIDE 0.9% 100 ML ONE (13:59)
[2021-07-16] MEDS ORDERED: LEVALBUTEROL 1.25 MG/3 ML NEB ONE (13:59)
[2021-07-16] MEDS ORDERED: PIPERACIL/TAZO 3.375 GM VIAL IV ONE (13:59)
[2021-07-16 15:00] LABS: Absolute Lymphocytes (CBC) 2.2 K/uL (0.7-4.9); Basophils % 0.8 % (0-1.3); Hematocrit 33.7 % (36.0-45.0); Lymphocytes % 23.1 % (15.3-44.8); MPV 8.2 fL (7.6-11.3); RBC Red Blood Cell Count 3.41 M/uL (3.86-4.86)
[2021-07-16 15:11] LABS: Protime INR 1.03
[2021-07-16 15:33] LABS: ALT/SGPT 8 U/L (12-78); AST/SGOT 8 U/L (15-37); Albumin 2.7 g/dL (3.4-5.0); Alkaline Phosphatase 58 U/L (45-117); BUN Blood Urea Nitrogen 38 mg/dL (7-18); Bicarbonate 29 mmol/L (21-32); Bilirubin Direct 0.1 mg/dL (0-0.2); Bilirubin Total 0.3 mg/dL (0.2-1.0); Glucose Level 98 mg/dL (74-106); Magnesium 2.5 mg/dL (1.8-2.4); NT PRO-BNP 7500 pg/mL (<450); Potassium 4.4 mmol/L (3.5-5.1); Protein, Total 7.8 g/dL (6.4-8.2); Sodium Level 141 mmol/L (136-145); Troponin (Emerg Dept Use Only) < 0.02 ng/mL (0.0-0.045)
[2021-07-16] MEDS ORDERED: ENOXAPARIN 40 MG/0.4 ML SQ ONE (17:00)
[2021-07-16] MEDS ORDERED: PANTOPRAZOLE 40 MG INJ ONE (17:00)
--- NOTE | 2021-07-16 18:01 | RAD REPORT ---
EXAM DESCRIPTION: US - Extrem Venous W Compress Constantin - 07/16/2021 5:34 pm CLINICAL HISTORY: Pain;Swelling Bilateral leg edema and swelling. COMPARISON: Chest Single View dated 09/23/2019Extremity Venous Uni Ltd dated 07/20/2018 TECHNIQUE: Real-time sonographic interrogation of the left and right lower extremity deep venous sys tems was performed. FINDINGS: Normal compressibility, flow augmentation, phasic flow and spontaneous flow is identified in both the left and right lower extremity deep venous systems. IMPRESSION: No sonographic evidence of left or right lower extremity deep venous thrombosis.
--- NOTE | 2021-07-16 18:50 | RAD REPORT ---
EXAM DESCRIPTION: CT - Thorax Wo Con CLINICAL HISTORY: Chest pain PAIN COMPARISON: THORAX WO CONTRAST dated 07/10/2013 FINDINGS: Ground-glass and reticular opacities are present in both lungs, greatest in the upper lobe s. Small bilateral pleural effusions are present. No pneumothorax. Moderate cardiomegaly with aortic atherosclerosis noted. No axillary, mediastinal or hilar adenopathy. No acute fracture is evident. No gross upper abdominal finding. All CT scans are performed using dose optimization technique as appropriate and may include automated exposure control or mA/KV adjustment according to patient size. IMPRESSION: Moderate bilateral pulmonary opacities with small bilateral pleural effusions may repres ent CHF or atypical infection/ viral infection.
[2021-07-16 19:15] LABS: SARS-COV-2 RT PCR NEGATIVE (NEGATIVE)
[2021-07-16] MEDS ORDERED: ONDANSETRON 4 MG/2 ML VIAL IV PRN (21:57)
[2021-07-16] MEDS ORDERED: ALBUTEROL 2.5 MG/3 ML NEB SOL NEB PRN (21:57)
[2021-07-16] MEDS ORDERED: SODIUM CHLORIDE 0.9% 10ML INJ IV PRN (21:57)
[2021-07-16] MEDS: ENOXAPARIN 40 MG/0.4 ML SQ SCH (23:15)
[2021-07-16] MEDS: NA CHLORIDE 0.9% 1,000 ML IV SCH (23:15)
[2021-07-16] MEDS: PIPER TAZO 3.375 GM in NA CHLORIDE 0.9% 100 ML IV SCH (23:15)
[2021-07-17] MEDS ORDERED: ACETAMINOPHEN 325 MG TABLET ONE ×2 (00:11→00:31)
[2021-07-17] MEDS ORDERED: ACETAMINOPHEN 500 MG TAB ONE (00:33)
[2021-07-17] MEDS: ACETAMINOPHEN 500 MG TAB PO PRN ×2 (00:39→09:10)
[2021-07-17] MEDS: PIPER TAZO 3.375 GM in NA CHLORIDE 0.9% 100 ML IV SCH (01:00)
[2021-07-17 01:26] VITALS: BMI 21.6
[2021-07-17 03:59] LABS: Basophils % 1.3 % (0-1.3); Hematocrit 29.7 % (36.0-45.0); Lymphocytes % 25.7 % (15.3-44.8); MPV 8.5 fL (7.6-11.3); RBC Red Blood Cell Count 3.04 M/uL (3.86-4.86)
[2021-07-17 04:18] LABS: Potassium 4.1 mmol/L (3.5-5.1)
[2021-07-17] MEDS ORDERED: PIPERACIL/TAZO 3.375 GM VIAL IV ONE (05:20)
[2021-07-17] MEDS ORDERED: PIPER TAZO 3.375 GM in NA CHLORIDE 0.9% 100 ML IV SCH (07:00)
--- NOTE | 2021-07-17 07:06 | EKG ---
Test Date: 2021-07-16 Test Time: 17:38:21 Cell Tester: SIMA MEASUREMENT RESULTS: Intervals: Rate: 100 KS: 186 QRSD: 134 QT: 424 QTc: 546 [place]: P: 91 KS: 186 QRS: -69 T: 89 INTERPRETIVE STATEMENTS: Sinus rhythm with frequent premature ventricular complexes Left axis deviation Nonspecific intraventricular block Possible Lateral infarct, age undetermined Abnormal ECG Compared to ECG 11/08/2020 17:57:38 Ventricular premature complex(es) now present Myocardial infarct finding still present Electronically Signed On 07-17-21 07:04:38 [employer]TER by Jadiel Pettit
[2021-07-17] MEDS: ENOXAPARIN 40 MG/0.4 ML SQ SCH ×2 (08:59→21:01)
[2021-07-17] MEDS ORDERED: PANTOPRAZOLE 40 MG INJ IVP SCH (09:00)
[2021-07-17] MEDS: NA CHLORIDE 0.9% 1,000 ML IV SCH (11:17)
--- NOTE | 2021-07-17 12:34 | P.CNS ---
Date of Consult: 07/17/21 Reason for Consult: Hypoxemia Chief Complaint: Low Sat History of Present Illness: pt is 85 yrs of age aw hypoxemia for about a month. Went to [facility] signed out AMA, refused Ct scan/ hypoxic hypercapneic resp failure/ CT scan bilateral changes with effusions / BNP elevated/ Hx of COVID infection last year/ Pt denies lung problems Never smoked Allergies No Known Allergies Allergy (Verified 06/27/20 04:50) Home Medications: Acetaminophen 650 mg PO Q4H PRN 07/17/21 Amlodipine [Norvasc] 10 mg PO DAILY 07/17/21 Folic Acid 1 mg PO DAILY 07/17/21 Pantoprazole [Protonix Tab] 40 mg PO DAILY 07/17/21 atenoloL [Atenolol] 100 mg PO DAILY 07/17/21 - Past Medical/Surgical History Diabetic: No -: HTN -: Anxiety -: Insomnia -: Virus infection -: COVID infection - Social History Smoking Status: Unknown if ever smoked Alcohol use: No CD- Drugs: No Caffeine use: No Place of Residence: Home Review of Systems 10-point ROS is otherwise unremarkable General: Weakness Respiratory: Shortness of Breath Physical Examination Temp Pulse Resp BP Pulse Ox 97.3 F 77 28 H 119/56 L 99 07/17/21 08:55 07/17/21 08:55 07/17/21 08:55 07/17/21 08:55 07/17/21 08:55 General: Alert, Oriented x3 Neck: Supple Respiratory: Clear to auscultation bilaterally Cardiovascular: No edema, Regular rate/rhythm, Normal S1 S2 - Problems (1) CHF (congestive heart failure) Current Visit: Yes Status: Acute Plan: AW SOB likley CHF, Mild bialteral chages with small bilateral effusions/ R/O PE. Echo ordred. Start on IV lasix DC IVF, add steroids and BD/ High risk foPE/ las reviewed. Hx f COVID Qualifiers: Heart failure type: diastolic Heart failure chronicity: unspecified Qualified Code(s): I50.30 - Unspecified diastolic (congestive) heart failure
[2021-07-17] MEDS: FUROSEMIDE 20 MG/ 2ML VIAL IV SCH ×2 (13:52→21:01)
[2021-07-17] MEDS: METHYLPREDNISOLONE 40 MG INJ IV SCH ×2 (13:52→17:11)
[2021-07-17] MEDS: IPRATROPIUM BROM 0.5MG/2.5ML NEB PRN (20:09)
[2021-07-17] MEDS: ARFORMOTEROL TARTRATE 15 MCG/2 ML VIAL.NEB NEB SCH (20:09)
[2021-07-17] MEDS: ACETAMINOPHEN 325 MG TABLET PO PRN (21:01)
[2021-07-18] MEDS: METHYLPREDNISOLONE 40 MG INJ IV SCH ×2 (01:08→08:55)
--- NOTE | 2021-07-18 03:09 | PN ---
Date of Progress Note: 07/17/2021 The patient does seem somewhat better this afternoon. She is seen by Pulmonology, who felt that the primary problem was CHF. Therefore, we will consult Cardiology, which she has not seen for some time now. While in the hospital, her oxygen levels have stabilized. We will continue with the above-out lined regimen. Depending on the results of her oxygen levels, we will try and obtain some home O2, w hich she should qualify under the present lab results. HR/MODL Voice ID: [id number] Report ID: [id number]
--- NOTE | 2021-07-18 03:09 | HP ---
Date of Admission: 07/16/2021 Entrance Complaint: Shortness of breath, low oxygen. History Of Present Illness: According to the patient and her , the patient has had significan t episodes of dyspnea over the past few weeks. She was seen in the ER on the day of admission in [facility], at which time her oxygen levels were felt to be normal. She was, therefore, discharged, broug ht to our emergency room where in fact, her oxygen level was normal, however, blood gases showed a ma rkedly decreased oxygen and she was admitted for further treatment. The patient's states he has measured her oxygen many times over the past few weeks with ranges from the mid 90s to low 70s. He has noticed increasing dyspnea, and once it remained in the 70s, he felt it was necessary to bring her to the ER, which he did. Past History: The patient has a long history of hypertension, GI problems and has been on medication for this for some time now, has been relatively stable until the above detailed information as far a s her oxygen is concerned, has not required home O2, however, he apparently has tried on few occasion s to get it okayed, she did not qualify according to present standards. Family History: Noncontributory. Social History: Nonsmoker and nondrinker. Physical Examination: General: The patient is an elderly female with mild respiratory distress with stable vital signs. H ead and Neck: Normocephalic. Pupils are equal and reactive to light and accommodation. Fundi negat lacy. Trachea midline. Thyroid not palpable. ENT: Negative. Chest: High-pitched rales both bases . Adequate air entry and movement bilaterally. Cardiovascular: PMI midclavicular line. Heart sounds normal. Peripheral pulses present and equal bilaterally. Abdomen: No organomegaly. B owel sounds present. Extremities: Some mild contractures in lower extremities. The patient's husba nd does state she spends 20 out of 24 hours in reclining bed position. Upper extremities normal. Pe ripheral pulses present and equal bilaterally. Rectal/Pelvic: Deferred. Impression: Hypoxia secondary to underlying lung condition and/or congestive heart failure. Hyperte nsion, controlled. Plan: The patient will be admitted. Diuresis will be done. She will be placed on O2 supplement. HR/MODL Voice ID: [id number]
[2021-07-18] MEDS: ARFORMOTEROL TARTRATE 15 MCG/2 ML VIAL.NEB NEB SCH ×2 (07:38→20:40)
[2021-07-18] MEDS ORDERED: atenoloL 25 MG TAB ONE ×2 (07:49→08:50)
[2021-07-18] MEDS: ACETAMINOPHEN 325 MG TABLET PO PRN ×4 (08:46→21:30)
[2021-07-18] MEDS: atenoloL 50 MG TAB PO SCH (08:54)
[2021-07-18] MEDS: PANTOPRAZOLE 40MG TABLET PO SCH (08:55)
[2021-07-18] MEDS: FOLIC ACID 1 MG TABLET PO SCH (08:55)
[2021-07-18] MEDS: ENOXAPARIN 40 MG/0.4 ML SQ SCH (08:56)
[2021-07-18] MEDS: AMLODIPINE 10 MG TAB PO SCH (08:56)
[2021-07-18] MEDS: FUROSEMIDE 20 MG/ 2ML VIAL IV SCH (08:59)
[2021-07-18] MEDS ORDERED: HOME MED 1 EA UNK (Atenolol [Atenolol] 100 MG Tablet) PO SCH (09:00)
--- NOTE | 2021-07-18 09:52 | RAD REPORT ---
EXAM DESCRIPTION: CT - Chest For Pe Angio - 07/18/2021 9:36 am CLINICAL HISTORY: rule out PE COMPARISON: Thorax Wo Con dated 07/16/2021; THORAX WO CONTRAST dated 07/10/2013; THORAX W CONTRAST d ated 07/07/2013; Spine Lumbar Wo Con dated 06/01/2021; Extrem Venous W Compress [place] dated 07/16/2021 FINDINGS: Chest Wall: No suspicious thyroid nodules or pathologic lymphadenopathy. Lungs: Limited by motion. Interlobular septal thickening with some scattered more focal airspace opac ities. The overall appearance is similar to 07/16/2021. Pleura: Small pleural effusions bilaterally. Mediastinum/mario: No pathologic lymphadenopathy. Pulmonary arteries/Aorta: No filling defect identified. No aortic aneurysm. Atherosclerosis. Heart: No significant pericardial effusion. Multi-vessel coronary artery disease. Mitral annular calc ifications. Upper abdomen: Cholecystectomy. Right upper pole renal cyst which is partially imaged. Bones: Partially imaged L1 compression fracture with increased height loss compared with 06/01/2021. All CT scans are performed using dose optimization technique as appropriate and may include automated exposure control or mA/KV adjustment according to patient size. IMPRESSION: 1. Negative for pulmonary embolism. 2. Similar aeration of the lungs with small bilateral pleural effusions and nonspecific pulmonary opa cities probably representing interstitial edema though infection difficult to entirely exclude. 3. Partially imaged L1 compression fracture with increased height loss compared with 06/01/2021
--- NOTE | 2021-07-18 12:17 | P.PN ---
Subjective Date of Service: 07/18/21 Chief Complaint: Shortness of breath Subjective: Improving (Patient is improving CT scan does not show any evidence of pulmonary embolism most likely she has congestive heart failure) Review of Systems General: Weakness Respiratory: Shortness of Breath Physical Examination - Vital Signs Temperature: 97.7 F Blood Pressure: 121/58 Pulse: 85 Respirations: 18 Pulse Ox (%): 99 - Physical Exam General: Alert, Oriented x3 Respiratory: Clear to auscultation bilaterally, Diminished Assessment & Plan - Problems (Diagnosis) (1) CHF (congestive heart failure) Current Visit: Yes Status: Acute Plan: Patient is feeling better there is no evidence of congestive heart failure physical therapy ambulate evaluate for home O2 echocardiogram pending no evidence of pulmonary embolism echocardiogram pending we will set up for home O2 plan for discharge change to spironolactone 25 twice daily and Lasix 20 mg p.o. daily DC IV Lasix Qualifiers: Heart failure type: diastolic Heart failure chronicity: unspecified Qualified Code(s): I50.30 - Unspecified diastolic (congestive) heart failure
[2021-07-18] MEDS: IPRATROPIUM BROM 0.5MG/2.5ML NEB PRN (20:40)
[2021-07-18] MEDS: SPIRONOLACTONE 25 MG TABLET PO SCH (21:28)
--- NOTE | 2021-07-18 21:44 | PN ---
Date of Progress Note: 07/18/2021 The patient seems quite a bit better today. She started her physical therapy, which has been somewha t limited at home. She has home health for this. However, breathing is much better. Orientation mu ch better. Her eating has also improved somewhat. She has appointment with Cardiology next week, al though she has not seen a accounts payable administrator in a while. She is doing better on the medication, the spiron olactone, Lasix, which she has been seen by Dr. Herman and possibly could be discharged on home O2. Resume her home health and medication tomorrow. HR/MODL Voice ID: [id number] Report ID: [id number]
[2021-07-19] MEDS ORDERED: atenoloL 25 MG TAB ONE (07:11)
--- NOTE | 2021-07-19 07:31 | ECHO ---
HEIGHT: 5 ft 6 in WEIGHT: 134 lb 0 oz DATE OF STUDY: 07/18/[address]: Alexis Jolley MD 2-DIMENSIONAL: YES M.MODE: YES DOPPLER: YES COLOR FLOW: YES TDS: YES PORTABLE: DEFINITY: BUBBLE STUDY: DIAGNOSIS: CONGESTIVE HEART FAILURE CARDIAC HISTORY: CATHERIZATION: NO SURGERY: NO PROSTHETIC VALVE: NO PACEMAKER: NO MEASUREMENTS (cm) DIASTOLIC (NORMALS) SYSTOLIC (NORMALS) IVSd 1.1 (0.6-1.2) LA Diam 3.7 (1.9-4.0) LVEF 60% LVIDd 4.5 (3.5-5.7) LVIDs 3.1 (2.0-3.5) %FS 32% LVPWd 1.0 (0.6-1.2) Ao Diam 2.6 (2.0-3.7) 2 DIMENSIONAL ASSESSMENT: RIGHT ATRIUM: NORMAL LEFT ATRIUM: NORMAL RIGHT VENTRICLE: NORMAL LEFT VENTRICLE: NORMAL TRICUSPID VALVE: NORMAL MITRAL VALVE: MITRAL ANNULAR CALCIFICATION PULMONIC VALVE: NORMAL AORTIC VALVE: SCLEROSIS PERICARDIAL EFFUSION: NONE AORTIC ROOT: NORMAL LEFT VENTRICULAR WALL MOTION: NORMAL DOPPLER/COLOR FLOW: MILD TRICUSPID REGURGITATION. AORTIC REGURGITATION. COMMENTS: NORMAL LEFT VENTRICULAR SIZE AND FUNCTION. MITRAL ANNULAR CALCIFICATION. MILD TRICUSPID AND AORTIC REGURGITATION. AORTIC SCLEROSIS. NO STENOSIS. TECHNOLOGIST: LONNIE MACARIO
[2021-07-19] MEDS: SPIRONOLACTONE 25 MG TABLET PO SCH (08:47)
[2021-07-19] MEDS: PANTOPRAZOLE 40MG TABLET PO SCH (08:48)
[2021-07-19] MEDS: FOLIC ACID 1 MG TABLET PO SCH (08:48)
[2021-07-19] MEDS: AMLODIPINE 10 MG TAB PO SCH (08:48)
[2021-07-19] MEDS: atenoloL 50 MG TAB PO SCH (08:48)
[2021-07-19] MEDS ORDERED: ENOXAPARIN 40 MG/0.4 ML SQ SCH (09:00)
[2021-07-19] MEDS ORDERED: FUROSEMIDE 40 MG TABLET PO SCH (09:00)
[2021-07-19] MEDS: ARFORMOTEROL TARTRATE 15 MCG/2 ML VIAL.NEB NEB SCH (14:02)
[2021-07-19 16:54] VITALS: BP 121/58; TEMP 98.2; O2SAT 94
--- NOTE | 2021-07-19 17:36 | PN ---
Date of Progress Note: 07/19/2021 The patient seems somewhat better today as well. She is utilizing the oxygen. She has been placed o n and Lasix as well as her prior hospitalization medication of Norvasc and atenolol. She w ill be discharged. Home health could play a part in her rehab. She has done better according to the staff and her over the past 24-48 hours. She will be followed up by Cardiology in 1 week an d myself in 2 weeks. Her episode was primarily CHF possibly aggravated by pulmonary issues such as a spiration; however, this seems less likely. She will also be seen by Dr. Jolley in 2 weeks. HR/MODL Voice ID: [id number] Report ID: [id number]
== END 2021-07-19 16:55 | disposition home or self-care (01) | DRG 291 ==
LOC: ER 09:09 → ERHOLD 13:59 → 4TH 07-17 08:02
PROVIDERS: ADMIT Family Medicine; ATTEND Family Medicine
DX: I11.0 Hypertensive heart disease with heart failure (principal); J96.01 Acute respiratory failure with hypoxia; I50.31 Acute diastolic (congestive) heart failure; Z79.899 Other long term (current) drug therapy; Z86.16 Personal history of COVID-19; Z20.822 Contact with and (suspected) exposure to COVID-19
CPT/HCPCS: 0241U; 36415; 71045; 71250; 71275; 80048; 80076; 82805; 83605; 83735; 83880; 84484; 85025; 85379; 85610; 87040; 93005; 93306; 93970; 94760; 96361; 96365; 96372; 96375; 97116; 97161; 97530; 99284; C9113; J1650; J1940; J2543; J2920; J7030; J7605; Q9967

== ENCOUNTER 2021-10-10 10:53 | Emergency (ER) | payer MEDICARE, OTHER ==
--- OUTSIDE RECORDS SUMMARY | 2021-10-10 10:58 | XMS REPORT | Continuity of Care Document ---
:1935 Author Organization [facility] t Address [facility] [address] [place] [address] Care Team Providers Name Role Phone Nupur Primary Care Physician Doctor Unassigned, Name Attending Clinician Unavailable TITO Attending Clinician Unavailable Tito WILDER Attending Clinician Peña WILDER, Juan Daniel Attending Clinician Blossom DIXON Attending Clinician NUPUR Admitting Clinician Unavailable TITO Admitting Clinician Unavailable Payers Payer Name Policy Type Policy Number Effective Date Expiration Date S clint XIOMARA/TIO [id number] 2021 00:00:00 MCARE ADV CHOICE PPO Problems Condition Condition Condition Status Onset Resolution Last Treating Co mments Source Name Details Category Date Date Treatment Clinician Date No known No known Disease Unive rs active active ity of problems problems [facility] Allergies, Adverse Reactions, Alerts Allergy Allergy Status Severity Reaction(s) Onset Inactive Treating Comm ents Source Name Type Date Date Clinician NO KNOWN Drug Active Univers ALLERGIE Class ity of S [facility] Social History Social Habit Start Date Stop Date Quantity Comments Source History of Cigarette Smoker Universi ty of tobacco use [facility] Exposure to Not sure University of SARS-CoV-[address] [facility] (event) [place] Alcohol intake 2021-07-06 2021-07-06 Lifetime University of 00:00:00 00:00:00 non-drinker [facility] (finding) [place] Tobacco use and 2021-07-06 2021-07-06 Never used Universit y of exposure 00:00:00 00:00:00 [facility] Sex Ass[birth year] Universit y of 00:00:00 00:00:00 [facility] Smoking Status Start Date Stop Date Source Former smoker 2021-07-06 00:00:00 2021-07-06 00:00:00 [facility] Medications Ordered Filled Start Stop Current Ordering Indication Dosage Frequency Signature Comments Components Source Medication Medication Date Date Medication? Clinician (SIG) Name Name Nitrofurant 2020-08- No [id number] 100mg Take 1 Univers oin&Nit. 09-09 capsule by ity of [place] 00:00: 00:00 mouth 2 [place] as (MACROBID) 00 :00 (two) Medical 100 mg times Branch capsule daily. Nitrofurant 2020-08- No [id number] 100mg Take 1 Univers oin&Nit. 09-05 capsule by ity of [place] 00:00: 05:59 mouth 2 [place] as (MACROBID) 00 :00 (two) Medical 100 mg times Branch capsule daily for 7 days. Nitrofurant 2020-08 No [id number] 100mg Take 1 Univers oin&Nit. 09-05 capsule by ity of [place] 00:00: 05:59 mouth 2 Faheem as (MACROBID) 00 :00 (two) Medical 100 mg times Branch capsule daily for 7 days. Nitrofurant 2020-08- No [id number] 100mg Take 1 Univers oin&Nit. 09-05 capsule by ity of [place] 00:00: 00:00 mouth 2 Fahe[place] as (MACROBID) 00 :00 (two) Medical 100 mg times Branch capsule daily for 7 days. ciprofloxac 2020-08- No Unive rs in HCl 250 08-25 ity of mg tablet 00:00: 00:00 [place] 00 :00 Medical Branch ciprofloxac 2020-08- No [...] TABLET BY ity o f 00:00: MOUTH 00 EVERY 8 Medical HOURS Branch NEEDED traMADoL 50 2020-08 Yes TAKE 1 Univ ers mg tablet 0-15 TABLET BY ity o f 00:00: MOUTH 00 EVERY 8 Medical HOURS Branch NEEDED traMADoL 50 2020-08 Yes TAKE 1 Univ ers mg tablet 0-15 TABLET BY ity o f 00:00: MOUTH EVERY 8 Medical HOURS Branch NEEDED traMADoL 50 2020-08 Yes TAKE 1 Univ ers mg tablet 0-15 TABLET BY ity o f 00:00: MOUTH 00 EVERY 8 Medical HOURS Branch NEEDED traMADoL 50 2020-08 Yes TAKE 1 Univ ers mg tablet 0-15 TABLET BY ity o f 00:00: MOUTH 00 EVERY 8 Medical HOURS Branch NEEDED traMADoL 50 2020-08 Yes TAKE 1 Univ ers mg tablet 0-15 TABLET BY ity o f 00:00: MOUTH 00 EVERY 8 Medical HOURS Branch NEEDED amLODIPine Yes 10mg Take 10 mg U nivers 10 mg 9-29 by mouth ity of tablet 00:00: daily. [place] 00 Medical Branch amLODIPine 2021-0 Yes 10mg Take 10 mg U nivers 10 mg 9-29 by mouth ity of tablet 00:00: daily. [facility] amLODIPine 2020-0 Yes 10mg Take 10 mg U nivers 10 mg 9-29 by mouth ity of tablet 00:00: daily. [address] amLODIPine 2020-0 Yes 10mg Take 10 mg U nivers 10 mg 9-29 by mouth ity of tablet 00:00: daily. [facility] amLODIPine 2020-0 Yes 10mg Take 10 mg U nivers 10 mg 9-29 by mouth ity of tablet 00:00: daily. [facility] amLODIPine 2020-0 Yes 10mg Take 10 mg U nivers 10 mg 9-29 by mouth ity of tablet 00:00: daily. [address] atenoloL 2020-0 Yes Univers 100 mg 9-22 ity of tablet 00:00: [address] foLIC acid 2020-0 Yes Univers 1 mg tablet 9-22 ity of 00:00: [address] pantoprazol 2020-0 Yes Univer s e 40 mg EC 9-22 ity of tablet 00:00: [address] atenoloL 2020-0 Yes Univers 100 mg 9-22 ity of tablet 00:00: [address] foLIC acid 2020-0 Yes Univers 1 mg tablet 9-22 ity of 00:00: [address] pantoprazol 2020-0 Yes Univer s e 40 mg EC 9-22 ity of tablet 00:00: [address] atenoloL 2020-0 Yes Univers 100 mg 9-22 ity of tablet 00:00: [address] foLIC acid 1-0 Yes Univers 1 mg tablet 9-22 ity of 00:00: [address] pantoprazol 2020-0 Yes Univer s e 40 mg EC 9-22 ity of tablet 00:00: [address] atenoloL 2020-0 Yes Univers 100 mg 9-22 ity of tablet 00:00: [address] foLIC acid 2020-0 Yes Univers 1 mg tablet 9-22 ity of 00:00: [address] pantoprazol 2020-0 Yes Univer s e 40 mg EC 9-22 ity of tablet 00:00: [place] 00 [facility] Branch atenoloL 2020-0 Yes Univers 100 mg 9-22 ity of tablet 00:00: [place] [facility] foLIC acid 2020-0 Yes Univers 1 mg tablet 9-22 ity of 00:00: [place] [facility] pantoprazol 2020-0 Yes Univer s e 40 mg EC 9-22 ity of tablet 00:00: [place] [facility] atenoloL 2020-0 Yes Univers 100 mg 9-22 ity of tablet 00:00: [place] [facility] foLIC acid 2020-0 Yes Univers 1 mg tablet 9-22 ity of 00:00: [place] [facility] pantoprazol 2020-0 Yes Univer s e 40 mg EC 9-22 ity of tablet 00:00: [place] [facility] Immunizations Ordered Filled Immunization Date Status Comments Sour e Immunization Name Name Influenza Virus 2021-06-18 Completed Universit y of Vaccine - Whole 00:00:00 [facility] Influenza Virus 2021-06-18 Completed Universit y of Vaccine - Whole 00:00:00 [facility] Influenza Virus 2021-06-18 Completed Universit y of Vaccine - Whole 00:00:00 [facility] Influenza Virus 2021-06-18 Completed Universit y of Vaccine - Whole 00:00:00 [facility] Influenza Virus 2021-06-18 Completed Universit y of Vaccine - Whole 00:00:00 [facility] Influenza Virus 2021-06-18 Completed Universit y of Vaccine - Whole 00:00:00 [facility] SARS-COV-2 COVID-19 2020-11-07 Completed Unive rsity of MODERNA VACCINE 00:00:00 [facility] SARS-COV-2 COVID-19 2020-11-07 Completed Unive rsity of MODERNA VACCINE 00:00:00 [facility] SARS-COV-2 COVID-19 2020-11-07 Completed Unive rsity of MODERNA VACCINE 00:00:00 [facility] SARS-COV-2 COVID-19 2020-11-07 Completed Unive rsity of MODERNA VACCINE 00:00:00 [facility] SARS-COV-2 COVID-19 2020-11-07 Completed Unive rsity of MODERNA VACCINE 00:00:00 [facility] SARS-COV-2 COVID-19 2020-11-07 Completed Unive rsity of MODERNA VACCINE 00:00:00 [facility] SARS-COV-2 COVID-19 2020-10-09 Completed Unive rsity of MODERNA VACCINE 00:00:00 [facility] SARS-COV-2 COVID-19 2020-10-09 Completed Unive rsity of MODERNA VACCINE 00:00:00 [facility] SARS-COV-2 COVID-19 2020-10-09 Completed Unive rsity of MODERNA VACCINE 00:00:00 [facility] SARS-COV-2 COVID-19 2020-10-09 Completed Unive rsity of MODERNA VACCINE 00:00:00 [facility] SARS-COV-2 COVID-19 2020-10-09 Completed Unive rsity of MODERNA VACCINE 00:00:00 [facility] SARS-COV-2 COVID-19 2020-10-09 Completed Unive rsity of MODERNA VACCINE 00:00:00 [facility] Vital Signs Vital Name Observation Time Observation Value Comments Source Systolic blood 2021-07-15 19:00:00 100 mm[Hg] Univer sity of pressure [facility] Diastolic blood 2021-07-15 19:00:00 48 mm[Hg] Unive rsity of pressure [facility] Heart rate 2021-07-15 19:00:00 65 /min [facility] Respiratory rate 2021-07-15 19:00:00 18 /min [facility] Oxygen saturation in 2021-07-15 19:00:00 85 /min [facility] Arterial blood by [facility] Pulse oximetry [place] Body temperature 2021-07-15 16:56:00 36 Samantha [facility] Body height 2021-07-15 16:56:00 160 cm [facility] Body weight 2021-07-15 16:56:00 61.236 kg [facility] BMI 2021-07-15 16:56:00 23.91 kg/m2 [facility] Systolic blood 2021-07-06 18:13:00 93 mm[Hg] Univer sity of pressure [facility] Diastolic blood 2021-07-06 18:13:00 50 mm[Hg] [facility] of pressure [facility] Heart rate 2021-07-06 18:13:00 74 /min [facility] Body temperature 2021-07-06 18:13:00 36.33 Samantha [facility] Respiratory rate 2021-07-06 18:13:00 18 /min [facility] Body height 2021-07-06 18:13:00 160 cm [facility] Body weight 2021-07-06 18:13:00 61.236 kg [facility] BMI 2021-07-06 18:13:00 23.91 kg/m2 [facility] Procedures Procedure Date / Time Performing Clinician Source Performed HOME HEALTH - OTHER 2021-08-07 06:01:00 [facility] COMP. METABOLIC PANEL 2021-07-15 18:45:00 Freddy Lora [facility] ([id number]) Medical Branch ACTIVATED PARTIAL 2021-07-15 17:33:00 Freddy Lora [facility] THRMPLAS LISA [facility] N-TERMINAL PRO-BNP 2021-07-15 17:33:00 Freddy Lora [facility] COVID-19 (ID NOW RAPID 2021-07-15 17:33:00 [facility] TESTING) Medical Branch TROPONIN I 2021-07-15 17:33:00 Freddy Lora [facility] CBC WITH DIFF 2021-07-15 17:33:00 Freddy Lora [facility] PROTHROMBIN TIME / INR 2021-07-15 17:33:00 Freddy Lora [facility] XR CHEST 1 VW 2021-07-15 17:14:51 Freddy Lora [facility] POCT URINALYSIS W/O 2021-07-06 00:00:00 Neema Pompa [facility] SPECIFIC GRAVITY [facility] Encounters Start End Encounter Admission Attending Care Care Encounter Source Date/Time Date/Time Type Type Clinicians Facility Department ID 2021-08-21 2021-08-21 Outpatient R [facility] [id number] Univers 00:00:00 00:00:00 ity of [facility] 2021-08-07 2021-08-07 Orders Doctor CECI [id number] Univers 00:00:00 00:00:00 Only Unassigned, GUI [id number] ity of [place] [facility] 4.2.7.2.686 Faheem [id number] [facility] 009 Branch 2021-07-16 2021-07-16 Outpatient R [facility] [id number] Univers 10:00:00 10:00:00 [id number] ity of [facility] 2021-07-15 2021-07-15 Emergency [facility] [id number] Univers 10:52:00 15:50:00 FREDDY ity [facility] [place] [facility] 2021-07-15 2021-07-15 [facility] [id number] Univers 10:52:00 15:50:00 Freddy BACA [id number] i ty of [place] 4.2.7.2.686 [facility] [id number] [facility] 084 Branch 2021-07-11 2021-07-11 Telephone Neema Pompa [facility] [place] [id number] Univers 00:00:00 00:00:00 Juan Daniel CULVER [id number] it y of [facility] [place]2.[place] [facility] [id number] [facility] 134 Branch 2021-07-10 2021-07-10 Case Blossom [facility] [id number] Univers 00:00:00 00:00:00 Management Nelida BACA [id number] ity of [place] 4.2.7.2.686 [facility] PROFESS [id number] [facility] 2021-07-06 2021-07-06 Office Neema Pompa [facility] JET [id number] Univers 11:25:13 14:05:47 Visit Juan Daniel CULVER [id number] it y of WOMEN'S 4.2.7.2.686 [facility] [id number] [facility] 134 Branch Results Test Description Test Time Test Comments Results Result Comments Source COMP. METABOLIC PANEL (10444) 2021-07-15 19:10:56 Test Item Value Reference Range Interpretation Comme nts NA (test code = 0081355338) 135 mmol/L 135-145 K (test code = 8801871023) 4.5 mmol/L 3.5-5.0 CL (test code = 8665937214) 99 mmol/L 98-108 CO2 TOTAL (test code = 0517086318) 31 mmol/L 23-31 AGAP (test code = 3692550451) 2-16 BUN (test code = 3686479364) 41 mg/dL 7-23 H GLUCOSE (test code = 8715988852) 114 mg/dL 70-110 H CREATININE (test code = 1.16 mg/dL 0.50-1.04 H 4648797688) TOTAL BILI (test code = 0.3 mg/dL 0.1-1.8 3540217080) CALCIUM (test code = 0104948595) 9.3 mg/dL 8.6-10.6 T PROTEIN (test code = 3970105540) 6.8 g/dL 6.3-8.2 ALBUMIN (test code = 2009399611) 3.3 g/dL 3.5-5.0 L ALK PHOS (test code = 0954681092) 65 U/L 34-122 ALTv (test code = 1742-6) 9 U/L 5-35 AST(SGOT) (test code = 7739818684) 17 U/L 13-40 eGFR (test code = 6964534438) mL/min/1.73m2 MARGE (test code = MARGE) Association [...] tests). Lab Interpretation (test code = Abnormal 24854-0) [id number] 18:14:52 Test Item Value Reference Interpretation Comments Range TROPONIN I (test 0.007 ng/mL See_Comment [Automated code = 8297790414) message] The system which generated this result [...] biotin. Lab Interpretation Normal (test code = 35011-0) [facility] [id number] 18:11:36 Test Item Value Reference Range Interpretation Comments NT-proBNP (test code 3370 pg/mL See_Comment H [Autom ated = 5352331870) message] The system which generated this result transmitted reference range : <=450. The reference range was not used to interpret this result as normal/abnormal . MARGE (test code = MARGE) Biotin has been reported to cause a negative bias, interpret results relative to patient's use of biotin. Lab Interpretation Abnormal (test code = 53225-9) [facility] THRMPLAS [id number] 17:57:34 Test Item Value Reference Range Interpretation Comments APTT Patient (test See_Comment [Automat ed code = 3173-2) message] The system which generated this result transmitted reference range : 23 - 38 Seconds . The reference range was not used to interpr et this result as normal/abnormal . MARGE (test code = MARGE) The [facility] patient population mean normal value for aPTT is 30 seconds. Lab Interpretation Normal (test code = 20002-3) [facility] / [id number] 17:55:34 Test Item Value Reference Range Interpretation [...] tions. Lab Interpretation (test Normal code = 22676-7) [facility] WITH [id number] 17:47:53 Test Item Value Reference Range Interpretation Comments WBC (test code = See_Comment [Automated 6402-2) message] The sy stem which generated this result transmitted reference range : 4.30 - 11.10 10*3/?L. The reference range was not used to interpret this result as normal/abnormal . RBC (test code = See_Comment L [Automated 369-8) message] The sy stem which generated this [...] (test code = 52.9 fL 39.0-49.9 H 44246-9) RDW-CV (test code = 13.9 % 12.0-15.5 788-0) PLT (test code = See_Comment [Automated 777-3) message] The sy stem which generated this result transmitted reference range : 166 - 358 10*3/ ?L. The reference r yvette was not used to interpret this result as normal/abnormal . MPV (test code = 10.4 fL 9.5-12.9 64694-0) NRBC/100 WBC (test See_Comment [Automat ed code = 3034057198) message] The system which generated this result transmitted reference range : 0.0 - 10.0 /100 WBCs. The refer ence range was not u sed to interpret th is result as normal/abnormal . NRBC x10^3 (test code <0.01 See_Comment [Auto mated = 1829095073) message] The s ystem which generated this result transmitted reference range : 10*3/?L. The reference range was not used to interpret this result as normal/abnormal . GRAN MAT (NEUT) % 64.0 % (test code = 770-8) IMM GRAN % (test code 1.20 % = 7841144355) LYMPH % (test code = 13.5 % 736-9) MONO % (test code = 12.5 % 5905-5) EOS % (test code = 8.2 % 713-8) BASO % (test code = 0.6 % 706-2) GRAN MAT x10^3(ANC) 5.98 10*3/uL 1.88-7.09 (test code = 2097223872) IMM GRAN x10^3 (test 0.11 10*3/uL 0.00-0.06 H code = 9800031073) LYMPH x10^3 (test code 1.26 10*3/uL 1.32-3.29 L = 731-0) MONO x10^3 (test code 1.17 10*3/uL 0.33-0.92 H = 742-7) EOS x10^3 (test code = 0.77 10*3/uL 0.03-0.39 H 711-2) BASO x10^3 (test code 0.06 10*3/uL 0.01-0.07 = 704-7) Lab Interpretation Abnormal (test code = 60842-5) [facility] W/O SPECIFIC [id number] 18:33:00 Test Item Value Reference Range Interpretation [...] code = 3257) trace Negative - Negative [facility] W/O SPECIFIC [id number] 18:33:00 Test Item Value Reference Range Interpretation [...] code = 3257) trace Negative - Negative [facility]"
[2021-10-10] MEDS ORDERED: NA CHLORIDE 0.9% 1,000 ML ONE (10:59)
[2021-10-10] MEDS ORDERED: NA CHLORIDE 0.9% 3,000 ML ONE (11:09)
[2021-10-10 11:36] LABS: Absolute Lymphocytes (CBC) 4.3 K/uL (0.7-4.9); Hematocrit 33.2 % (36.0-45.0); Lymphocytes % 25.4 % (15.3-44.8); MPV 8.4 fL (7.6-11.3); RBC Red Blood Cell Count 3.19 M/uL (3.86-4.86)
[2021-10-10 11:38] LABS: Arterial Blood Carboxyhemoglob 0.3 % (0-1.5); Blood Gas Oxyhemoglobin 69.4 % (94-97); Blood O2 Saturation 70.4 % (92-98.5)
[2021-10-10 12:00] LABS: Bilirubin Direct 0.2 mg/dL (0-0.2); Bilirubin Total 0.3 mg/dL (0.2-1.0); CKMB Creatine Kinase MB 8.9 ng/mL (1.0-3.6); Potassium 4.9 mmol/L (3.5-5.1); Protein, Total 5.6 g/dL (6.4-8.2); Protime INR 1.12; Troponin High Sensitivity 50.5 pg/mL (<58.9)
--- NOTE | 2021-10-10 12:41 | EDPHYS ---
Physician Documentation [facility] Name: Lauren Butterfield Age: 85 yrs Sex: Female : 1935 Arrival Date: 10/10/2021 Time: 10:56 Bed 3 Private MD: ED Physician Rosamaria Nelson HPI: 10/10 12:37 This 85 yrs old Female presents to ER via EMS with complaints of Cardiac Arrest, ROSC. ma2 12:37 The arrest occurred at home. Pre-hospital course: The arrest was not witnessed by ma2 others. Bystanders at the scene performed CPR. ACLS details: Initial rhythm was The presenting rhythm is Airway: Medications given by EMS prior to arrival -. Unable to obtain HPI due to altered mental status. The patient has not experienced similar symptoms in the past. Historical: - Allergies: 11:06 No Known Allergies; iw - Home Meds: 11:06 atenolol 100 mg Oral tab 1 tab once daily [Active]; amlodipine 10 mg tab 1 tab once iw daily [Active]; pantoprazole 40 mg oral TbEC 1 tab once daily [Active]; Lacey 180 mg Oral tab 1 tab once daily [Active]; folic acid 1 mg Oral tab 1 tab once daily [Active]; spironolactone 25 mg Oral tab 1 tab 2 times per day [Active]; furosemide 20 mg Oral tab 1 tab once daily [Active]; Iron CR 65 mg Oral daily [Active]; - PMHx: 11:06 Hypertensive disorder; iw - Immunization history:: Adult Immunizations. - Social history:: Smoking status: . - Family history:: not pertinent. ROS: 12:37 Unable to obtain ROS due to patient is on ventilator. ma2 Exam: 12:37 Constitutional: This is a well developed, intubated patient in cardiac arrest, fixed ma2 dilated pupils no spontaneous breathing, no pulse rhythm shows asystole, no spontaneous breathing breathing or movement she has no pulse at this time, CPR was done according to ACLS she was pronounced at 1132. Vital Signs: 10:52 BP 52 / 27; Pulse 114; Resp 17 A; Pulse Ox 100% on ETT ambu; tw2 MDM: 11:37 Patient medically screened. ma2 12:37 Differential diagnosis: cardiac arrest, respiratory arrest, overdose, asphyxiation. ma2 Data reviewed: vital signs, nurses notes. 10/10 11:24 Order name: Amylase, Serum [facility] 10/10 11:24 Order name: Basic Metabolic Panel [facility] 10/10 11:24 Order name: Blood Culture Adult (2) [facility] 10/10 11:24 Order name: CBC with Diff [facility] 10/10 11:24 Order name: CPK [facility] 10/10 11:24 Order name: Ckmb [facility] 10/10 11:24 Order name: LFT's [facility] 10/10 11:24 Order name: Lipase [facility] 10/10 11:24 Order name: Procalcitonin [facility] 10/10 11:24 Order name: Protime (+inr) [facility] 10/10 11:24 Order name: Ptt, Activated [facility] 10/10 11:24 Order name: Troponin HS [facility] 10/10 11:24 Order name: Accucheck [facility] 10/10 11:24 Order name: Cardiac monitoring [facility] 10/10 11:24 Order name: EKG - Nurse/Tech [facility] 10/10 11:24 Order name: IV Saline Lock - Large Bore [facility] 10/10 11:24 Order name: Labs collected and sent [facility] 10/10 11:24 Order name: O2 Per Protocol [facility] 10/10 11:24 Order name: O2 Sat Monitoring [facility] 10/10 11:24 Order name: Urine Dipstick-Ancillary (obtain specimen) [facility] 10/10 11:24 Order name: Amylase [facility] 10/10 11:24 Order name: Basic Metabolic Panel [facility] 10/10 11:24 Order name: CBC with Automated Diff [facility] 10/10 11:38 Order name: ABG Arterial Blood Gas EDNE Administered Medications: 11:14 Drug: NS 0.9% 3000 ml Route: IV; Rate: 3 bolus; Site: left forearm; tw2 11:24 CANCELLED (Duplicate Order): NS 0.9% (30 ml/kg) 30 ml/kg IV at bolus once; Sepsis tw2 Protocol Disposition: 12:37 . co2 Disposition Summary: 10/10/21 12:40 Patient Location: Home co2 Pronouncing Physician: Rosamaria Nelson co2 Time of : 11:32 10/10/2021 [facility] Diagnosis - Cardiac arrest, cause unspecified ma2 Signatures: Dispatcher [employer] EDNimisha Evans, RN RN iw Cari Ross RN RN tw2 Rosamaria Nelson MD MD co2 Corrections: (The following items were deleted from the chart) 11:24 11:24 NS 0.9% (30 ml/kg) 30 ml/kg IV at bolus once; Sepsis Protocol ordered. [facility] 11:35 11:24 Chest Single View+RAD.RAD.BRZ ordered. EDMS EDMS
--- NOTE | 2021-10-10 12:41 | ER ---
Nurse's Notes [facility] Name: Lauren Butterfield Age: 85 yrs Sex: Female : 1935 Arrival Date: 10/10/2021 Time: 10:56 Bed 3 Private MD: Diagnosis: Cardiac arrest, cause unspecified Presentation: 10/10 11:01 Chief complaint: EMS states: reported that pt was found on the ground at 8:30 iw this morning, pt was able to stand up and get get back onto bed with assistance, then was unable to wake her up around 10:08, CPR and ACLS was initiated by EMS , pt was asystole on monitor, regained pulse after approx 20 minutes. Care prior to arrival: CPR performed by EMS IV initiated. IO right tibia Glucose check: 300 Oxygen administered. via AMBU bag. Compressions began prior to arrival. 11:01 Method Of Arrival: EMS: [facility] iw 11:01 Acuity: JOHNSON 1 iw 11:04 Coronavirus screen: At this time, the client does not indicate any symptoms associated iw with coronavirus-19. Ebola Screen: Patient negative for fever greater than or equal to 101.5 degrees Fahrenheit, and additional compatible Ebola Virus Disease symptoms Patient denies exposure to infectious person. Patient denies travel to an Ebola-affected area in the 21 days before illness onset. No symptoms or risks identified at this time. Initial Sepsis Screen: Does the patient meet any 2 criteria? No. Patient's initial sepsis screen is negative. Does the patient have a suspected source of infection? No. Patient's initial sepsis screen is negative. Risk Assessment: Do you want to hurt yourself or someone else? Patient reports no desire to harm self or others. Onset of symptoms was October 10, 2021. Historical: - Allergies: 11:06 No Known Allergies; iw - Home Meds: 11:06 atenolol 100 mg Oral tab 1 tab once daily [Active]; amlodipine 10 mg tab 1 tab once iw daily [Active]; pantoprazole 40 mg oral TbEC 1 tab once daily [Active]; Lacey 180 mg Oral tab 1 tab once daily [Active]; folic acid 1 mg Oral tab 1 tab once daily [Active]; spironolactone 25 mg Oral tab 1 tab 2 times per day [Active]; furosemide 20 mg Oral tab 1 tab once daily [Active]; Iron CR 65 mg Oral daily [Active]; - PMHx: 11:06 Hypertensive disorder; iw - Immunization history:: Adult Immunizations. - Social history:: Smoking status: . - Family history:: not pertinent. Screenin:02 Abuse screen: Denies threats or abuse. Nutritional screening: No deficits noted. tw2 Tuberculosis screening: No symptoms or risk factors identified. Fall Risk Secondary diagnosis (15 points) impaired mobility. Assessment: 11:16 Reassessment: Dr Bolden speaking with spouse at this time. tw2 Vital Signs: 10:52 BP 52 / 27; Pulse 114; Resp 17 A; Pulse Ox 100% on ETT ambu; tw2 ED Course: 10:56 Patient arrived in ED. iw 11:02 Rosamaria Nelson MD is Attending Physician. ma2 11:02 Arm band placed on. tw2 11:02 Placed in gown. Bed in low position. Side rails up X2. monitoring and evaluation advisor on. Pulse ox on. tw2 NIBP on. Warm blanket given. 11:04 Triage completed. iw 11:39 notified [facility] to have product marketing specialist come to er. bd 12:05 Barb Palomino, RN is Primary Nurse. 6 12:40 Rosamaria Nelson MD is Pronouncing Provider. ma2 Administered Medications: 11:14 Drug: NS 0.9% 3000 ml Route: IV; Rate: 3 bolus; Site: left forearm; tw2 11:24 CANCELLED (Duplicate Order): NS 0.9% (30 ml/kg) 30 ml/kg IV at bolus once; Sepsis tw2 Protocol Outcome: 11:32 Patient : Time of 11:32 Pronounced by Rosamaria Nelson MD iw 15:24 Patient left the ED. tw2 Signatures: Cally Cotton Irene, RN RN Cari Ross RN RN [facility] Rosamaria Nelson MD MD [facility] Barb Palomino RN RN [facility]
== END 2021-10-10 15:24 | disposition expired ==
LOC: ER 10:53
DX: I46.9 Cardiac arrest, cause unspecified (principal); I10 Essential (primary) hypertension
CPT/HCPCS: 85025; 80048; 36415; 82150; 82550; 85610; 80076; 85730; 84484; 82553; 83690; 84145; 94002; 82805; 94003; 92950; 99291; J7030 ×2; 93005